=== PATIENT | male | born 1940 | race Caucasian/White ===

== ENCOUNTER 2019-07-26 18:53 | Inpatient (IN) ==
[2019-07-26] MEDS ORDERED: Heparin IV Low Dose *NO* Bolus IV ONE (19:17)
[2019-07-26] MEDS ORDERED: HEPARIN SODIUM/DEXTROSE 25,000 UNITS/500 ML BAG IV SCH (19:30)
[2019-07-26 19:47] LABS: Hematocrit (blood only) 33.2 % (42-52); Hemoglobin 10.6 g/dL (14.0-18.0); Mean Corpuscular Hemoglobin 26.7 pg (25-34); Mean Corpuscular Hgb Conc 31.9 g/dL (32-36); Mean Corpuscular Volume 83.6 fL (80-100); Platelet Count 268 K/uL (130-400); RDW Coefficient of Variation 16.3 % (11.5-14.5); RDW Standard Deviation 49.6 fL (36.4-46.3); Red Blood Count 3.97 M/uL (4.7-6.1); White Blood Count 25.69 K/uL (4.8-10.8)
--- NOTE | 2019-07-26 19:49 | XRay Report ---
XR chest 1V portable CLINICAL HISTORY: weakness COMPARISON STUDY: No previous studies for comparison. FINDINGS: Soft tissue mass overlying the left axilla and left upper chest. Destructive changes involv ing the left third and fourth ribs. Estimated maximum dimension is 9 x 6 cm. Consolidative density left lung base. Right lung is clear. Heart is mildly enlarged. IMPRESSION: 1. Large destructive mass involving the left axilla and left upper chest. 2. Destructive characteristics involving several left upper ribs. 3. Increased nonspecific density left lung base. ACT 112: Negative or not required by law. The above report was generated using voice recognition software. It may contain grammatical, syntax or spelling errors. Electronically signed by: Cruz Carter M.D. 07/26/2019 7:48 PM
[2019-07-26 19:56] LABS: INR 1.4 (0.9-1.1)
[2019-07-26 20:03] LABS: Alanine Aminotransferase 46 U/L (12-78); Albumin Level 2.4 gm/dl (3.4-5.0); Aspartate Aminotransferase 30 U/L (15-37); BUN Creatinine Ratio 32.6 (10-20); Blood Urea Nitrogen 93 mg/dl (7-18); Calcium 8.9 mg/dl (8.5-10.1); Carbon Dioxide 18 mmol/L (21-32); Chloride 108 mmol/L (98-107); Creatinine Clr Calc Pharmacy 22.3 ml/min; Est GFR (African American) 23.5; Est GFR (Non-African American) 20.3; Glucose 175 mg/dl (70-99); Magnesium 1.8 mg/dl (1.8-2.4); Potassium 4.3 mmol/L (3.5-5.1); Sodium 135 mmol/L (136-145)
[2019-07-26 20:14] LABS: Albumin Globulin Ratio 0.6 (0.9-2); Alkaline Phosphatase 110 U/L (45-117); Bilirubin,Total 0.4 mg/dl (0.2-1); Creatine Kinase 24 U/L (39-308); Globulin 4.3 gm/dl (2.5-4.0); Total Protein 6.7 gm/dl (6.4-8.2); Troponin I < 0.015 ng/ml (0-0.045)
[2019-07-26] MEDS ORDERED: MoRPHine SULFATE 2 MG/ML CARP IV STA (21:05)
--- NOTE | 2019-07-26 21:08 | Emergency Department Note ---
History of Present Illness General Chief Complaint: Cardiac Assessment Stated Complaint: ed transfer Time Seen by Provider: 07/26/19 19:15 Source: patient Mode of arrival: EMS Limitations: no limitations History of Present Illness Provider Complaint: other (Tachycardia/palpitations) Onset (ago): hour(s) greater than 10 Duration: constant Onset: during rest Pain Location: substernal Pain Radiation: none Maximum Pain Intensity: 10 Relieved By: + nothing Exacerbated By: + nothing Context: no recent illness, no recent travel and no history of DVT/PE Associated symptoms: + palpitations; no nausea and no vomiting This is a 78-year-old male who was evaluated at the [place] emergency department and sent here for admission. The patient was sent here because of acute kidney injury as well as A. fib/flutter with RVR. The patient states that he went to the hospital in [place] for a sensation of his heart racing. He was found to have A. fib/flutter with RVR and a heart rate in the 150s. The patient was given some medication including heparin and sent here for evaluation as he had acute kidney injury in addition to his new onset A. fib/flutter. The patient also was noted to have a erosive mass in his left upper chest. The patient was accepted by Dr. Hernandez but recommended the patient come here first to make sure he is stable. Home Medications Home Medications Medication Instructions Recorded Confirmed Type albuterol sulfate [Ventolin HFA] 2 puff INHALATION UD PRN 07/26/19 07/26/19 History amlodipine 5 mg PO DAILY 07/26/19 07/26/19 History ezetimibe 10 mg PO DAILY 07/26/19 07/26/19 History glimepiride 2 mg PO DAILY 07/26/19 07/26/19 History hydrocodone-acetaminophen [[place]] 1 tab PO UD PRN 07/26/19 07/26/19 History losartan 50 mg PO DAILY 07/26/19 07/26/19 History metoprolol tartrate 25 mg PO TID 07/26/19 07/26/19 History naproxen sodium [Aleve] 440 mg PO BID PRN 07/26/19 07/26/19 History pravastatin 20 mg PO DAILY 07/26/19 07/26/19 History prednisone 2.5 mg PO DAILY 07/26/19 07/26/19 History umeclidinium-vilanterol [Anoro 1 ea INHALATION UD 07/26/19 07/26/19 History Ellipta] Allergies Allergy/AdvReac Type Severity Reaction Status Date / Time No Known Allergies Allergy Unverified 07/26/19 22:01 Past Med/Surg History Social History Feels Safe at Home: Yes Smoking Status: Former smoker Review of Systems A total of 10 systems reviewed and were otherwise negative Physical Exam Vital Signs Vital Signs - 24 hr 07/26/19 19:09 07/26/19 19:13 07/26/19 19:16 Temperature Temperature Source Pulse Rate 108 H 153 H Pulse Rate from SpO2 Sensor 102 H 151 H Respiratory Rate 26 H 33 H Respiratory Effort / Characteristics Respiratory Depth Respiratory Pattern Blood Pressure 117/53 L Blood Pressure Mean 66 Pulse Oximetry 90 100 Oxygen Delivery Method Room Air Oxygen Flow Rate Sepsis Recent Fever Within 48 Hours Sepsis Action Taken by Nursing 07/26/19 19:20 07/26/19 19:24 07/26/19 19:30 Temperature 36.4 C L Temperature Source Oral Pulse Rate 114 H 115 H 119 H Pulse Rate from SpO2 Sensor 112 H 90 Respiratory Rate 26 H 35 H 32 H Respiratory Effort / Characteristics Labored Respiratory Depth Shallow Respiratory Pattern Tachypnea Blood Pressure 117/53 L Blood Pressure Mean 74 Pulse Oximetry 100 100 99 Oxygen Delivery Method Nasal Cannula Oxygen Flow Rate 4 Sepsis Recent Fever Within 48 Hours No Sepsis Action Taken by Nursing No Action Required 07/26/19 19:40 07/26/19 19:50 07/26/19 20:00 Temperature Temperature Source Pulse Rate 143 H 104 H 102 H Pulse Rate from SpO2 Sensor 106 H 102 H Respiratory Rate 23 40 H 40 H Respiratory Effort / Characteristics Respiratory Depth Respiratory Pattern Blood Pressure Blood Pressure Mean Pulse Oximetry 100 100 Oxygen Delivery Method Oxygen Flow Rate Sepsis Recent Fever Within 48 Hours Sepsis Action Taken by Nursing 07/26/19 20:10 07/26/19 20:20 07/26/19 20:30 Temperature Temperature Source Pulse Rate 102 H 112 H 110 H Pulse Rate from SpO2 Sensor 104 H 108 H Respiratory Rate 28 H 31 H 47 H Respiratory Effort / Characteristics Respiratory Depth Respiratory Pattern Blood Pressure Blood Pressure Mean Pulse Oximetry 98 98 Oxygen Delivery Method Oxygen Flow Rate Sepsis Recent Fever Within 48 Hours Sepsis Action Taken by Nursing 07/26/19 20:33 07/26/19 20:35 07/26/19 20:36 Temperature Temperature Source Pulse Rate 113 H 109 H 113 H Pulse Rate from SpO2 Sensor 111 H 107 H 105 H Respiratory Rate 37 H 41 H 46 H Respiratory Effort / Characteristics Respiratory Depth Respiratory Pattern Blood Pressure 100/67 Blood Pressure Mean 72 Pulse Oximetry 98 98 95 Oxygen Delivery Method Oxygen Flow Rate Sepsis Recent Fever Within 48 Hours Sepsis Action Taken by Nursing 07/26/19 20:40 07/26/19 20:50 07/26/19 21:00 Temperature Temperature Source Pulse Rate 109 H 103 H 155 H Pulse Rate from SpO2 Sensor 103 H 104 H Respiratory Rate 42 H 48 H 54 H Respiratory Effort / Characteristics Respiratory Depth Respiratory Pattern Blood Pressure Blood Pressure Mean Pulse Oximetry 98 98 Oxygen Delivery Method Oxygen Flow Rate Sepsis Recent Fever Within 48 Hours Sepsis Action Taken by Nursing 07/26/19 21:10 07/26/19 21:11 07/26/19 21:20 Temperature Temperature Source Pulse Rate 104 H 99 H 105 H Pulse Rate from SpO2 Sensor 107 H 113 H 105 H Respiratory Rate 26 H 42 H 33 H Respiratory Effort / Characteristics Respiratory Depth Respiratory Pattern Blood Pressure 92/59 L Blood Pressure Mean 69 Pulse Oximetry 96 96 96 Oxygen Delivery Method Oxygen Flow Rate Sepsis Recent Fever Within 48 Hours Sepsis Action Taken by Nursing 07/26/19 21:30 07/26/19 21:31 Temperature Temperature Source Pulse Rate 100 H 102 H Pulse Rate from SpO2 Sensor 101 H 105 H Respiratory Rate 33 H 26 H Respiratory Effort / Characteristics Respiratory Depth Respiratory Pattern Blood Pressure 99/59 L Blood Pressure Mean 62 Pulse Oximetry 97 97 Oxygen Delivery Method Oxygen Flow Rate Sepsis Recent Fever Within 48 Hours Sepsis Action Taken by Nursing CONSTITUTIONAL/VITAL SIGNS: Reviewed / noted above. GENERAL: Non-toxic in appearance. INTEGUMENTARY: Warm, dry, and [place]. HEAD: Normocephalic. EYES: without scleral icterus or trauma. ENT/OROPHARYNX: clear and moist. LYMPHADENOPATHY/NECK: Is supple without lymphadenopathy or meningismus. RESPIRATORY: Lungs clear and equal. CARDIOVASCULAR: Irregular and slightly tachycardic. GI/ABDOMEN: Soft and nontender. No organomegaly or pulsatile mass. No rebound or guarding. Normal bowel sounds. EXTREMITIES: Warm and well perfused. BACK: No CVA tenderness. NEUROLOGICAL: Intact without focal deficits. PSYCHIATRIC: normal affect. MUSCULOSKELETAL: Normally developed with good muscle tone. TRIAGE NURSING DOCUMENTATION REVIEWED. Course Administered Medications Heparin Sodium/Dextrose (Heparin Sodium/Dextrose) 25,000 units in 500 mls @ 19 mls/hr IV .Q24H PAULINA; Protocol Stop: 08/25/19 19:29 Last Admin: 07/26/19 20:27 Dose: 950 units/hr, 19 mls/hr Documented by: [id number] Cosigned by: [id number] Discontinued Medications Heparin Sodium/Dextrose () 1 ea IV ONE ONE; Protocol Stop: 07/26/19 19:18 Last Admin: 07/26/19 20:29 Dose: 1 ea Documented by: [id number] Sodium Chloride (Nss 1000ml) 1,000 mls @ 999 mls/hr IV .Q1H1M ONE Stop: 07/26/19 22:09 Last Admin: 07/26/19 21:23 Dose: 999 mls/hr Documented by: [id number] Morphine Sulfate (Morphine Sulfate) 2 mg IV NOW STA Stop: 07/26/19 21:06 Last Admin: 07/26/19 21:21 Dose: 2 mg Documented by: [id number] Medical Decision Making Differential Diagnosis Differential includes acute coronary syndrome, myocardial infarction, CVA, TIA, anemia, infection, pneumonia, UTI, pyelonephritis, poor nutrition, dehydration, electrolyte disturbance,hypoglycemia. Medical Records Attestation: I reviewed the patient's medical records. Home Medications Current Medication List: was personally reviewed by me Laboratory Data Attestation: I reviewed the patient's lab results. Result diagrams: 07/26/19 19:39 07/26/19 19:39 Labs: Lab Results 07/26/19 07/26/19 07/26/19 Range/Units 19:39 19:39 19:39 WBC 25.69 H (4.8-10.8) K/uL RBC 3.97 L (4.7-6.1) M/uL Hgb 10.6 L (14.0-18.0) g/dL Hct 33.2 L (42-52) % MCV 83.6 (80-100) fL MCH 26.7 (25-34) pg MCHC 31.9 L (32-36) g/dL RDW Std Deviation 49.6 H (36.4-46.3) fL RDW Coeff of Jeremy 16.3 H (11.5-14.5) % Plt Count 268 (130-400) K/uL MPV 10.0 (7.4-10.4) fL Immature Gran % (Auto) 0.6 % Neut % (Auto) 89.9 % Lymph % (Auto) 4.3 % Gall[place] % (Auto) 4.7 % Eos % (Auto) 0.5 % Baso % (Auto) 0.0 % Immature Gran # (Auto) 0.15 H (0.00-0.02) K/uL Neut # (Auto) 23.08 H (1.4-6.5) K/uL Lymph # (Auto) 1.10 L (1.2-3.4) K/uL Gall[place] # (Auto) 1.22 H (0.11-0.59) K/uL Eos # (Auto) 0.13 (0-0.5) K/uL Baso # (Auto) 0.01 (0-0.2) K/uL PT 15.0 H (9.0-12.0) Seconds INR 1.4 H (0.9-1.1) Sodium 135 L (136-145) mmol/L Potassium 4.3 (3.5-5.1) mmol/L Chloride 108 H (98-107) mmol/L Carbon Dioxide 18 L (21-32) mmol/L Anion Gap 9.0 (3-11) BUN 93 H (7-18) mg/dl Creatinine 2.86 H (0.6-1.4) mg/dl Est Cr Clr Drug Dosing 22.3 ml/min Est GFR ( Amer) 23.5 Est GFR (Non-Af Amer) 20.3 BUN/Creatinine Ratio 32.6 H (10-20) Glucose 175 H (70-99) mg/dl Lactate (0.4-2.0) mmol/L Calcium 8.9 (8.5-10.1) mg/dl Magnesium 1.8 (1.8-2.4) mg/dl Total Bilirubin 0.4 (0.2-1) mg/dl AST 30 (15-37) U/L ALT 46 (12-78) U/L Alkaline Phosphatase 110 (45-117) U/L Total Creatine Kinase 24 L (39-308) U/L Troponin I < 0.015 (0-0.045) ng/ml Total Protein 6.7 (6.4-8.2) gm/dl Albumin 2.4 L (3.4-5.0) gm/dl Globulin 4.3 H (2.5-4.0) gm/dl Albumin/Globulin Ratio 0.6 L (0.9-2) TSH 1.370 (0.300-4.500) uIu/ml Urine Color Urine Appearance (Clear) Urine pH (4.5-7.5) Ur Specific Malcolm (1.000-1.030) Urine Protein (Negative) Urine Glucose (UA) (Negative) Urine Ketones (Negative) Urine Blood (Negative) Urine Nitrite (Negative) Urine Bilirubin (Negative) Urine Urobilinogen (Negative) Ur Leukocyte Esterase (Negative) 07/26/19 07/26/19 Range/Units 19:39 21:02 WBC (4.8-10.8) K/uL RBC (4.7-6.1) M/uL Hgb (14.0-18.0) g/dL Hct (42-52) % MCV (80-100) fL MCH (25-34) pg MCHC (32-36) g/dL RDW Std Deviation (36.4-46.3) fL RDW Coeff of Jeremy (11.5-14.5) % Plt Count (130-400) K/uL MPV (7.4-10.4) fL Immature Gran % (Auto) % Neut % (Auto) % Lymph % (Auto) % Gall[place] % (Auto) % Eos % (Auto) % Baso % (Auto) % Immature Gran # (Auto) (0.00-0.02) K/uL Neut # (Auto) (1.4-6.5) K/uL Lymph # (Auto) (1.2-3.4) K/uL [place] # (Auto) (0.11-0.59) K/uL Eos # (Auto) (0-0.5) K/uL Baso # (Auto) (0-0.2) K/uL PT (9.0-12.0) Seconds INR (0.9-1.1) Sodium (136-145) mmol/L Potassium (3.5-5.1) mmol/L Chloride (98-107) mmol/L Carbon Dioxide (21-32) mmol/L Anion Gap (3-11) BUN (7-18) mg/dl Creatinine (0.6-1.4) mg/dl Est Cr Clr Drug Dosing ml/min Est GFR ( Amer) Est GFR (Non-Af Amer) BUN/Creatinine Ratio (10-20) Glucose (70-99) mg/dl Lactate 2.0 (0.4-2.0) mmol/L Calcium (8.5-10.1) mg/dl Magnesium (1.8-2.4) mg/dl Total Bilirubin (0.2-1) mg/dl AST (15-37) U/L ALT (12-78) U/L Alkaline Phosphatase (45-117) U/L Total Creatine Kinase (39-308) U/L Troponin I (0-0.045) ng/ml Total Protein (6.4-8.2) gm/dl Albumin (3.4-5.0) gm/dl Globulin (2.5-4.0) gm/dl Albumin/Globulin Ratio (0.9-2) TSH (0.300-4.500) uIu/ml Urine Color Yellow Urine Appearance Clear (Clear) Urine pH 5.0 (4.5-7.5) Ur Specific Malcolm 1.019 (1.000-1.030) Urine Protein Negative (Negative) Urine Glucose (UA) Negative (Negative) Urine Ketones Negative (Negative) Urine Blood Negative (Negative) Urine Nitrite Negative (Negative) Urine Bilirubin Negative (Negative) Urine Urobilinogen Negative (Negative) Ur Leukocyte Esterase Negative (Negative) Imaging Data Chest x-ray: Radiologist's impression: Chest x-ray: IMPRESSION: 1. Large destructive mass involving the left axilla and left upper chest. 2. Destructive characteristics involving several left upper ribs. 3. Increased nonspecific density left lung base. ECG Data Attestation: I personally reviewed and interpreted this ECG as follows: Indication: palpitations Rate (beats per minute): 115 Rhythm: atrial flutter Findings: + RBBB; no PVC and no ST elevation Blood Pressure Blood Pressure Findings: Normal blood pressure MDM Narrative This is a 78-year-old male who was evaluated at the [place] emergency department and sent here for admission. The patient was sent here because of acute kidney injury as well as A. fib/flutter with RVR. The patient states that he went to the hospital in [place] for a sensation of his heart racing. He was found to have A. fib/flutter with RVR and a heart rate in the 150s. The patient was given some medication including heparin and sent here for evaluation as he had acute kidney injury in addition to his new onset A. fib/flutter. The patient also was noted to have a erosive mass in his left upper chest. The patient was accepted by Dr. Hernandez but recommended the patient come here first to make sure he is stable. The patient's white blood cell count reveals a leukocytosis. His hemoglobin is stable. BUN is 93 and creatinine is 2.86. Chest x-ray reveals the large destructive lesion in the left upper chest. EKG showed a flutter with a heart rate of 115. This fluctuates between the high 90s and 1 teens. The patient was given some IV morphine and IV fluids. He was also given IV heparin. He will be seen by the hospitalist who accepted him for admission. Impression & Plan Atrial flutter with rapid ventricular response, Acute kidney injury, Acute dehydration Discharge Plan Visit Data Chief Complaint: Cardiac Assessment Stated Complaint: ed transfer ED Provider: Fabio Wu Discharge Problem: Atrial flutter with rapid ventricular response, Acute kidney injury, Acute dehydration Patient Disposition: Admitted As Inpatient Forms Stand Alone Forms: [facility], Virtual Emergency Department, Important Visit Information Prescriptions Prescriptions: No Action losartan 50 mg tablet 50 mg PO DAILY RF: 0 hydrocodone-acetaminophen [[place]] 5-325 mg tablet 1 tab PO UD PRN (Reason: Pain) RF: 0 prednisone 5 mg tablet 2.5 mg PO DAILY RF: 0 amlodipine 5 mg tablet 5 mg PO DAILY RF: 0 glimepiride 2 mg tablet 2 mg PO DAILY RF: 0 pravastatin 20 mg tablet 20 mg PO DAILY RF: 0 albuterol sulfate [Ventolin HFA] 90 mcg/actuation HFA aerosol inhaler 2 puff INHALATION UD PRN (Reason: Shortness Of Breath) RF: 0 ezetimibe 10 mg tablet 10 mg PO DAILY RF: 0 metoprolol tartrate 25 mg tablet 25 mg PO TID RF: 0 Anoro Ellipta 62.5-25 mcg/actuation blister with device 1 ea INHALATION UD RF: 0 naproxen sodium [Aleve] 220 mg Tablet 440 mg PO BID PRN (Reason: Pain) RF: 0 Referrals Referrals: Oscar Killian [Primary Care Provider] -
[2019-07-26] MEDS ORDERED: SODIUM CHLORIDE 0.9% 1000ML 1,000 ML IV ONE (21:09)
[2019-07-26 21:19] LABS: Appearance Urine Clear (Clear); Bilirubin Urine Negative (Negative); Blood Urine Negative (Negative); Color Urine Yellow; Glucose Urine UA Negative (Negative); Ketones Urine Negative (Negative); Leukocyte Esterase Urine Negative (Negative); Nitrite Urine Negative (Negative); Protein Urine Negative (Negative); Specific Gravity Urine 1.019 (1.000-1.030); Urobilinogen Urine Negative (Negative)
[2019-07-26 21:27] LABS: Basophils # (auto) 0.01 K/uL (0-0.2); Eosinophils # (auto) 0.13 K/uL (0-0.5); Eosinophils % (auto) 0.5 %; Immature Granulocytes # (auto) 0.15 K/uL (0.00-0.02); Immature Granulocytes % (auto) 0.6 %; Lymphocytes % (auto) 4.3 %; Monocytes # (auto) 1.22 K/uL (0.11-0.59); Monocytes % (auto) 4.7 %; Neutrophils # (auto) 23.08 K/uL (1.4-6.5); Neutrophils % (auto) 89.9 %
--- NOTE | 2019-07-26 23:30 | History & Physical Report ---
Date of Service July 26, 2019 Assessment & Plan (1) Atrial flutter with rapid ventricular response: Patient is a 78 year old male with PMHx L lung mass, DM2, HTN, Anxiety/Depression, Bullous Pemphigoid, CKD, and COPD who presents as a transfer from [place] [facility] for new onset A Flutter, SOB, and lung mass. 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 -CT Head, Chest, Abdomen/Pelvis w/o con ordered -Pt will likely require CT chest w/ con once renal function improves. -Pulmonology consulted for possible biopsy of lesion, patient will likely require Heme-Onc consult once pathology returns. -Patient notes 40 year 1PPD history of smoking, quit 15 years ago. MEGHNA -Cr 2.86 on arrival, base Cr 1 -Likely pre-renal in nature -Continue hydration NSS 100ml/hr COPD -PFT 09/05/18 noted moderate obstruction and air trapping per chart review -Continue Albuterol PRN -Continue Anoro Ellipta DM2 -Pharmacy glycemic consult HTN/HLD -Continue Zetia -Continue pravastatin Bullous Pemphigoid -Continue Prednisone 2.5mg QD Dispo: Telemetry FEN: NPO, NSS 100ml/hr DVT: Heparin gtt Code: Full (2) Acute kidney injury: (3) Lung mass: (4) COPD (chronic obstructive pulmonary disease): (5) DM2 (diabetes mellitus, type 2): (6) HTN (hypertension): (7) Bullous pemphigoid: History of Present Illness Chief Complaint: Atrial Flutter Primary Care Provider: Oscar Killian Patient is a 78 year old male with PMHx L lung mass, DM2, HTN, Anxiety/Depression, Bullous Pemphigoid, CKD, and COPD who presents as a transfer from [place] ED for new onset A Flutter, SOB, and lung mass. Patient states that he was first diagnosed with a "bone cancer" 3-4 months ago by his PCP Dr. Killian. He notes that since that time, he has yet to see an Oncologist, but does state he has had "some scans" in the past. Patient denies knowing what scans he has had and is unclear if he had the work up completed at [place] or [place]. He also notes that this morning his symptoms began as worsening shortness of breath upon awakening. He noted that he was also having "difficulty waking up" and states that while he did not pass out, he felt as though he were about to several times. His home nurse came for the day and encouraged the patient to go to the ED for evaluation due to her concerns for his worsening SOB. While at [place] ED he was found to be in Afib/Aflutter with RVR and had an MEGHNA on top of his CKD. They also made note on CXR of a pleural-based malignancy at the lateral aspect of the hemithorax which had increased from 6.3cm to 7.7cm since 07/03/2019. Patient was given Cardizem, a fluid bolus, and put on a heparin drip. He was also given morphine for his L shoulder/chest wall pain. He was transferred to [facility] for further treatment and evaluation. Patient currently states that he does not feel SOB (while on 4L NC). He states he cannot feel his heart racing nor does he have any chest pain or dizziness. He does note dyspnea on exertion, nausea, abdominal pain primarily in the LLQ, and L shoulder pain 5/10 intensity. Allergies Allergy/AdvReac Type Severity Reaction Status Date / Time No Known Allergies Allergy Unverified 07/26/19 22:01 Home Medications Home Medications Medication Instructions Recorded Confirmed Type albuterol sulfate [Ventolin HFA] 2 puff INHALATION UD PRN 07/26/19 07/26/19 History amlodipine 5 mg PO DAILY 07/26/19 07/26/19 History ezetimibe 10 mg PO DAILY 07/26/19 07/26/19 History glimepiride 2 mg PO DAILY 07/26/19 07/26/19 History hydrocodone-acetaminophen [[place]] 1 tab PO UD PRN 07/26/19 07/26/19 History losartan 50 mg PO DAILY 07/26/19 07/26/19 History metoprolol tartrate 25 mg PO TID 07/26/19 07/26/19 History naproxen sodium [Aleve] 440 mg PO BID PRN 07/26/19 07/26/19 History pravastatin 20 mg PO DAILY 07/26/19 07/26/19 History prednisone 2.5 mg PO DAILY 07/26/19 07/26/19 History umeclidinium-vilanterol [Anoro 1 ea INHALATION UD 07/26/19 07/26/19 History Ellipta] Past Med/Surg History Medical History Mass of left chest wall Social History Preferred Language: Ukrainian Communication Ability: Impaired 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 Required: No Beliefs That Will Affect Care: None Current Living Situation: Alone Other Information That Helps Us Care for You: No Feels Safe at Home: Yes Safety Concerns: Feels Safe At This Time Smoking Status: Former smoker Do You Dip or Chew Tobacco: No ; Hx Alcohol Use: No Hx Substance Use: No Review of Systems Constitutional: + body aches and + weakness; no fever and no chills Eyes: + worsening vision Ear, Nose, Mouth, Throat: + dry mouth Respiratory: + dyspnea and + dyspnea on exertion; no cough and no hemoptysis Cardiovascular: + dyspnea, + dyspnea at rest and + dyspnea on exertion; no chest pain, no palpitations, no edema and no calf pain Gastrointestinal: + abdominal pain, + bloating and + nausea; no vomiting, no constipation and no diarrhea/loose stools Genitourinary: no dysuria Musculoskeletal: shoulder pain Neurologic: no falls pre-syncope Physical Exam Constitutional: well developed, well nourished, + disheveled and cooperative; no acute distress and not combative Eyes: PERRL, conjunctivae normal, anicteric sclerae ENMT: external ear and nose normal, oropharynx normal Neck: trachea midline, no thyromegaly Respiratory: normal respiratory effort and + cough; no respiratory distress and no stridor Auscultation: + diminished lung sounds (bases b/l ); no rales, no rhonchi and no wheezes Cardiovascular: Rate/Rhythm: + tachycardic; + abnormal rhythm (slightly irregular ) Heart Sounds: no murmur Vessels: no JVD Extremities: no calf tenderness and no edema Gastrointestinal (Abdomen): Inspection/Auscultation: + abdomen distended Percussion/Palpation: + abdomen tender (slight TTP in LLQ ), abdomen soft and + dullness to percussion (in lower quadrants b/l ) Musculoskeletal: Head/Neck/Chest: normocephalic and head atraumatic Skin: Trauma: + evidence of skin trauma (R joseph, 2/2 prior bullous pemphigoid ) Neurologic: PERRL, EOMI, accommodation nl, no face palsy, no dysarthria Psychiatric: Orientation: alert, oriented to person and cooperative; + not oriented to place and + not oriented to time Eye Contact: + fair eye contact Results & Data Results & Data ([facility]) Vital Signs (Past 12 Hours) Vital Signs Temp Pulse Resp BP Pulse Ox 07/26/19 23:00 75 23 114/44 L 97 07/26/19 22:50 76 20 98 07/26/19 22:40 104 H 31 H 07/26/19 22:30 74 23 107/53 L 90 07/26/19 22:20 73 27 H 97 07/26/19 22:10 108 H 22 94 07/26/19 22:00 83 27 H 112/64 97 07/26/19 21:50 96 07/26/19 21:40 99 07/26/19 21:32 97 07/26/19 21:31 102 H 26 H 99/59 L 97 07/26/19 21:30 100 H 33 H 97 07/26/19 21:20 105 H 33 H 96 07/26/19 21:11 99 H 42 H 96 07/26/19 21:10 104 H 26 H 92/59 L 96 07/26/19 21:00 155 H 54 H 07/26/19 20:50 103 H 48 H 98 07/26/19 20:40 109 H 42 H 98 07/26/19 20:36 113 H 46 H 95 07/26/19 20:35 109 H 41 H 100/67 98 07/26/19 20:33 113 H 37 H 98 07/26/19 20:30 110 H 47 H 98 07/26/19 20:20 112 H 31 H 07/26/19 20:10 102 H 28 H 98 07/26/19 20:00 102 H 40 H 100 07/26/19 19:50 104 H 40 H 100 07/26/19 19:40 143 H 23 07/26/19 19:30 119 H 32 H 99 07/26/19 19:24 36.4 C L 115 H 35 H 117/53 L 100 07/26/19 19:20 114 H 26 H 100 07/26/19 19:13 153 H 33 H 100 07/26/19 19:09 108 H 26 H 117/53 L 90 Code Status & VTE Plan VTE Prophylaxis Plan VTE Prophylaxis will be ordered: Yes Supervising Physician Co-Signing Physician Notes Attending addendum: I have physically seen this patient, have supervised the medical residents activities, and agree with the H&P unless as otherwise noted. Assessment and Plan: Atrial flutter with RVR/hypertension- The patient will be admitted to telemetry for serial cardiac enzymes, serial EKG's, cardiac rhythm monitoring and a 2-D echocardiogram with Dopplers. Hold amlodipine. Continue with metoprolol tartrate 25 mg p.o. 3 times daily Continue heparin drip begun in the ED. Lopressor 5 mg IV every 4 hours PRN heart rate greater than 110. Consult cardiology Left upper lobe lung mass/COPD- Increasing in size since 07/03/2019. Order CT chest, abdomen and pelvis. Contrast held due to acute kidney injury. Albuterol as needed. Consult pulmonology Acute kidney injury- Creatinine 2.86 upon arrival with baseline around 1. NSS@100 mils per hour. Follow laboratories every morning. Remainder of orders and notations as noted. PG Care Time/CCT Total # of Minutes Spent Total Time Spent with Patient: Total time spent is greater than 50% in coordination of care (as documented) at patient's floor/unit and/or counseling patient: Coding Level of Care Code 78049 Initial Inpt Care Lvl 3 Diagnoses Atrial flutter with rapid ventricular response I48.92 Acute kidney injury N17.9 Lung mass R91.8 COPD (chronic obstructive pulmonary disease) J44.9 DM2 (diabetes mellitus, type 2) E11.9 HTN (hypertension) I10 Bullous pemphigoid L12.0 Resident Activity Tracking Resident Involvement: Resident Care Provided Care Provided: Adult [facility]
[2019-07-26 23:53] LABS: Partial Thromboplastin Ratio 2.7
[2019-07-27 00:01] LABS: Partial Thromboplastin Time 74.6 Seconds (21.0-31.0)
[2019-07-27] MEDS ORDERED: ALBUTEROL HFA 8 GM INHALER INH PRN (01:18)
[2019-07-27] MEDS ORDERED: PHARMACY GLYCEMIC MGMT CONSULT PRN (01:28)
[2019-07-27] MEDS ORDERED: GLUCOSE 40% GEL 15 GM TUBE PO PRN (01:45)
[2019-07-27] MEDS ORDERED: CARBOHYDRATES FOR HYPOGLYCEMIA PO PRN (01:45)
[2019-07-27] MEDS ORDERED: GLUCAGON FOR INJ 1 MG VIAL SQ PRN (01:45)
[2019-07-27] MEDS ORDERED: DEXTROSE 50% 50 ML SYRINGE IV PRN (01:45)
[2019-07-27] MEDS ORDERED: GLUCOSE 10 TABS/TUBE PO PRN (01:45)
[2019-07-27 01:53] LABS: Basophils # (auto) 0.01 K/uL (0-0.2); Eosinophils # (auto) 0.12 K/uL (0-0.5); Eosinophils % (auto) 0.6 %; Hematocrit (blood only) 31.4 % (42-52); Hemoglobin 9.8 g/dL (14.0-18.0); Immature Granulocytes % (auto) 0.5 %; Lymphocytes # (auto) 0.99 K/uL (1.2-3.4); Lymphocytes % (auto) 4.6 %; Mean Corpuscular Hemoglobin 26.2 pg (25-34); Mean Corpuscular Hgb Conc 31.2 g/dL (32-36); Mean Platelet Volume 10.2 fL (7.4-10.4); Monocytes # (auto) 1.24 K/uL (0.11-0.59); Monocytes % (auto) 5.7 %; Neutrophils # (auto) 19.27 K/uL (1.4-6.5); Neutrophils % (auto) 88.6 %; Platelet Count 224 K/uL (130-400); RDW Coefficient of Variation 16.4 % (11.5-14.5); RDW Standard Deviation 50.2 fL (36.4-46.3); Red Blood Count 3.74 M/uL (4.7-6.1); White Blood Count 21.73 K/uL (4.8-10.8)
[2019-07-27] MEDS: SODIUM CHLORIDE 0.9% 1000ML 1,000 ML IV SCH ×2 (01:58→09:48)
[2019-07-27 02:19] LABS: Albumin Level 2.1 gm/dl (3.4-5.0); BUN Creatinine Ratio 33.8 (10-20); Calcium 8.4 mg/dl (8.5-10.1); Creatinine Clr Calc Pharmacy 24.8 ml/min; Est GFR (African American) 27.8; Potassium 4.5 mmol/L (3.5-5.1)
[2019-07-27 02:22] LABS: Albumin Globulin Ratio 0.5 (0.9-2); Bilirubin,Total 0.3 mg/dl (0.2-1); Globulin 3.9 gm/dl (2.5-4.0)
[2019-07-27] MEDS: INSULIN ASPART 100 UNITS/ML 3 ML PEN SC SCH ×5 (02:34→20:54)
[2019-07-27] MEDS ORDERED: ALBUMIN 25% 50 ML IV ONE (04:15)
[2019-07-27] MEDS ORDERED: MAGNESIUM SULFATE / D5W 1 GM/100 ML BAG IV ONE (04:15)
[2019-07-27 05:03] LABS: Basophils # (auto) 0.01 K/uL (0-0.2); Basophils % (auto) 0.1 %; Eosinophils # (auto) 0.08 K/uL (0-0.5); Eosinophils % (auto) 0.5 %; Hematocrit (blood only) 27.4 % (42-52); Hemoglobin 8.5 g/dL (14.0-18.0); Immature Granulocytes # (auto) 0.09 K/uL (0.00-0.02); Immature Granulocytes % (auto) 0.6 %; Lymphocytes # (auto) 0.73 K/uL (1.2-3.4); Lymphocytes % (auto) 4.7 %; Mean Corpuscular Hemoglobin 26.6 pg (25-34); Mean Corpuscular Volume 85.9 fL (80-100); Mean Platelet Volume 9.6 fL (7.4-10.4); Monocytes # (auto) 0.58 K/uL (0.11-0.59); Monocytes % (auto) 3.7 %; Neutrophils # (auto) 14.17 K/uL (1.4-6.5); Neutrophils % (auto) 90.4 %; Platelet Count 180 K/uL (130-400); RDW Coefficient of Variation 16.4 % (11.5-14.5); RDW Standard Deviation 51.8 fL (36.4-46.3); Red Blood Count 3.19 M/uL (4.7-6.1); White Blood Count 15.66 K/uL (4.8-10.8)
[2019-07-27] MEDS ORDERED: ONDANSETRON INJ 2 MG/ML 2 ML VIAL IV STA (06:10)
[2019-07-27] MEDS ORDERED: ONDANSETRON INJ 2 MG/ML 2 ML VIAL ONE (06:13)
[2019-07-27] MEDS ORDERED: SODIUM CHLORIDE 0.9% 1000ML 500 ML IV ONE (06:15)
[2019-07-27] MEDS ORDERED: METOPROLOL TARTRATE 1 MG/ML VIAL IV STA ×2 (06:15)
[2019-07-27] MEDS ORDERED: METOPROLOL TARTRATE 1 MG/ML VIAL IV ONE (06:16)
[2019-07-27 06:41] LABS: Partial Thromboplastin Ratio 1.7
--- NOTE | 2019-07-27 07:13 | CT Scan Report ---
CT head/brain wo con CLINICAL HISTORY: Altered mental status. Worsening vision. COMPARISON STUDY: No previous studies for comparison. TECHNIQUE: Axial CT of the brain is performed from the vertex to the skull base. IV contrast was not administered for this examination. A dose lowering technique was utilized adhering to the principles of ALARA. CT DOSE: 2730.09 mGy.cm FINDINGS: No intra or extra-axial mass lesions are visualized. There is no CT evidence of acute cortical infarc tion. There is no evidence of midline shift. There is no acute hemorrhage. No calvarial fractures ar e visualized. There are patchy white matter hypodensities likely on a small vessel basis. 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 There is no evidence of pathologic ventricular dilatation. There is no evidence of acute sinusitis IMPRESSION: No acute intracranial findings ACT 112: Negative or not required by law. Electronically signed by: Gonzalo Noriega M.D. 07/27/2019 7:11 AM
[2019-07-27 07:25] LABS: Partial Thromboplastin Time 46.1 Seconds (21.0-31.0)
--- NOTE | 2019-07-27 07:37 | CT Scan Report ---
CT chest wo con CT DOSE: HISTORY: Lung mass L lung mass TECHNIQUE: Multiaxial CT images of the chest were performed without contrast. A dose lowering techni que was utilized adhering to the principles of ALARA. COMPARISON: None. FINDINGS: Destructive left apical chest wall mass. This measures 8 cm maximum and shows destructive c hanges of the left and possibly components of the fourth rib. It extends to the left axilla. Additional 4.5 cm lesion in the left retrohilar position. There is a small left pleural effusion. Sub acute fractures of the left ninth 10th and 11th ribs. Several old healed right-sided rib fractures. IMPRESSION: 1. Destructive left apical chest wall mass with extension to the left axilla left pleural effusion. L eft axillary adenopathy with an additional soft tissue mass posterior to the hilar region measuring 4 .5 cm. 3. Several old right as well as left rib fractures of varying ages. 4. 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 ACT 112: Negative or not required by law. The above report was generated using voice recognition software. It may contain grammatical, syntax or spelling errors. Electronically signed by: Cruz Carter M.D. 07/27/2019 7:35 AM
--- NOTE | 2019-07-27 07:41 | CT Scan Report ---
CT SCAN OF THE ABDOMEN AND PELVIS WITHOUT CONTRAST CLINICAL HISTORY: Adenoid abdominal pain. History of carcinoma. COMPARISON STUDY: No previous studies for comparison. TECHNIQUE: CT scan of the abdomen and pelvis was performed from the lung bases to the proximal femurs . Images are reviewed in the axial, sagittal, and coronal planes. IV contrast was not administered fo r this examination. A dose lowering technique was utilized adhering to the principles of ALARA. CT DOSE: FINDINGS: Lower chest: There is a moderate left pleural effusion. There is a trace right pleural effusion. Ther e are left basilar atelectatic changes. There are coronary artery calcifications. Liver: The unenhanced liver is normal in size, contour, and attenuation. There is no intrahepatic leigh ann iary ductal dilatation. Gallbladder: Surgically absent Spleen: Normal in size and attenuation. Pancreas: Unremarkable. Adrenal glands: Unremarkable. Kidneys: No renal, ureteral, or bladder calculi are visualized. Bowel: There are no transition zones to indicate bowel obstruction. There is colonic diverticulosis. There is no evidence of acute diverticulitis. There are scattered colonic air-fluid levels. There is no evidence of acute appendicitis. Peritoneum: There is no intraperitoneal free air or abdominal ascites. Vasculature: The abdominal aorta is normal in course and caliber. Adenopathy: None. Pelvic viscera: The bladder, and pelvic viscera are unremarkable. Skeletal structures: No destructive osseous lesions are seen. IMPRESSION: 1. Motion degraded study 2. No evidence of bowel obstruction. No evidence of free air 3. No evidence of acute diverticulitis. No evidence of acute appendicitis 4. No renal, ureteral, or bladder calculi identified 5. Moderate left pleural effusion with left lung volume loss and left basilar atelectasis ACT 112: Negative or not required by law. Electronically signed by: Gonzalo Noriega M.D. 07/27/2019 7:39 AM
[2019-07-27] MEDS: predniSONE 2.5 MG TAB PO SCH (08:11)
[2019-07-27] MEDS: PRAVASTATIN SOD 20 MG TAB PO SCH (08:11)
[2019-07-27] MEDS: METOPROLOL TARTRATE 25 MG TAB PO SCH ×2 (08:11→14:10)
[2019-07-27] MEDS: EZETIMIBE 10 MG TABLET PO SCH (08:11)
[2019-07-27 08:25] LABS: Albumin Level 2.3 gm/dl (3.4-5.0); BUN Creatinine Ratio 33.2 (10-20); Calcium 8.5 mg/dl (8.5-10.1); Creatinine Clr Calc Pharmacy 25.3 ml/min; Est GFR (African American) 28.4; Est GFR (Non-African American) 24.5; Magnesium 2.1 mg/dl (1.8-2.4); Potassium 4.7 mmol/L (3.5-5.1)
[2019-07-27 08:28] LABS: Albumin Globulin Ratio 0.6 (0.9-2); Bilirubin,Total 0.5 mg/dl (0.2-1); Globulin 3.9 gm/dl (2.5-4.0); Phosphorus 3.6 mg/dl (2.5-4.9); Total Protein 6.2 gm/dl (6.4-8.2)
[2019-07-27] MEDS ORDERED: PERFLUTREN LIPID MICROSPHERE (DEFINITY) IV ONE (08:42)
--- NOTE | 2019-07-27 09:59 | Pharmacy Report ---
Glycemic Control Consultation - Date of Service July 27, 2019 - Scope Scope: Glycemic Pharmacist consulted for glycemic control and to write orders per [facility] inpatient glycemic control protocol. - Objective Weight: 77.5 kg Accuchecks BSG (last 24hrs): 07/26/19 07/27/19 07/27/19 19:39 01:35 01:58 Glucose 175 H 167 H POC Glucose 147 H 07/27/19 07/27/19 07/27/19 04:41 05:52 05:56 Glucose Cancelled Cancelled POC Glucose 190 H 07/27/19 07/27/19 07:29 07:53 Glucose 176 H POC Glucose 185 H Laboratory Data (last 24hrs): 07/26/19 07/27/19 07/27/19 19:39 01:35 04:41 Potassium 4.3 4.5 Cancelled Carbon Dioxide 18 L 16 L Cancelled Anion Gap 9.0 10.0 Cancelled Creatinine 2.86 H 2.49 H D Cancelled Est Cr Clr Drug Dosing 22.3 24.8 Cancelled Beta-Hydroxybutyric Acd 07/27/19 07/27/19 05:56 07:53 Potassium Cancelled 4.7 Carbon Dioxide Cancelled 19 L Anion Gap Cancelled 8.0 Creatinine Cancelled 2.45 H Est Cr Clr Drug Dosing Cancelled 25.3 Beta-Hydroxybutyric Acd Cancelled - Recent Pertinent Medications Outpatient Anti-diabetic Regimen: * Amaryl 2 mg PO daily Risk Factors for Insulin Resistance: * Steroids: prednisone 2.5 mg PO qAM * IVF: heparin drip * Recent Surgery: possible MARILYN and cardioversion * Diet: NPO - Assessment & Plan Assessment & Plan: ASSESSMENT: * Mr Castillo is a gentleman transferred from an outside facility secondary to Afib with RVR (given IV diltiazem) and a large lung mass. Patient currently NPO as may have MARILYN and cardioversion. POC BSGs have been below 200 mg/dL but there was difficulty with blood draws from the lab showing BSGs of 300 then 700 mg/dL. Due to uncertainty of true BSG erred on the side of caution with POCs. * Uncertain if patient's current creatinine is his baseline or represents an MEGHNA. On prednisone 2.5 mg PO qAM at home. Unknown HbA1C. * Weight-based stress of 2 Novolog currently ordered by nightshift pharmacist. Plan for Lantus 15 either at lunch or bedtime if BSG > 180 mg/dL. PLAN FOR INPATIENT GLYCEMIC CONTROL: * Holding outpatient oral diabetes medications * Basal insulin * Lantus 15 units SQ when BSG > 180 mg/dL * Bolus insulin * NovoLog per scale ACHS or Q6hrs while NPO * Goal Range: Low 110 mg/dL - High 140 mg/dL * Correction Factor: 30 mg/dL/unit * Nutritional / Prandial insulin per carb ratio of 1 unit per 10 grams CHO consumed * Please note that the plan above was derived based on current level of insulin resistance and hospital stress. These recommendations are appropriate for inpatient admission only. Plan of care upon discharge will need to be reassessed to avoid potential outpatient hypo/hyperglycemia. Thank you.
--- NOTE | 2019-07-27 10:30 | Family Medicine Progress Note ---
Date of Service July 27, 2019 Assessment & Plan (1) Atrial flutter with rapid ventricular response: 78 yo M PMHx recently diagnosed L lung mass, DM2, HTN, Anxiety/Depression, Bullous Pemphigoid, CKD with baseline ~1.8, COPD admitted for Aflutter with RVR, MEGHNA, and uncontrolled pain 2/2 lung mass. ED Course: 1L NSS, Heparin drip continuation, Morphine 2mg New Onset Atrial Flutter: - Patient was given a total of Cardizem 35mg IV, Cardizem 60mg PO, 1L NSS, and a Heparin drip started at [facility]. - EKG showed A Flutter with RVR - Have discontinued Heparin gtt; will start AC once determined if lung biopsy needed Monday. - Echo performed this AM: - Patient currently with AFib/Flutter, but in HR 80s-90s. - Continue home metoprolol 25mg TID as rate control. Metabolic Acidosis, likely 2/2 MEGHNA: - This morning with some tiredness and pain vs. encephalopathy. Pain improved significantly following IV morphine dosing. - ABG with pH 7.39, pCO2 29 (low) suggestive of hyperventilation 2/2 pain. - Cr 2.86 on arrival, base Cr 1.8 per lab at [facility]. - Likely pre-renal in nature, patient appeared dehydrated and has improved to Cr 2.45 with NSS fluid bolus and continued maintenance fluids. - Continue hydration NSS @ 100ml/hr. 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 - CXR here revealed a large destructive mass involving the L axilla and L upper chest and several ribs. - CT Head, Chest, Abdomen/Pelvis w/o con ordered: - CTAP without signs of metastasis. - CT chest shows lung mass of about 8cm in size at largest diameter with extension into the axilla, as well as lymphadenopathy to 4.5 cm. - Patient reports having had a lung biopsy several weeks ago at [facility]; will attempt to get records. - Patient notes 40 year 1PPD history of smoking, quit 15 years ago. - Continue morphine 4mg IV q4h PRN moderate pain. Can titrate up as needed/tolerated for pain control while also optimizing respiratory drive. - Will consult oncology following receiving results of biopsy pathology. COPD: - PFT 09/05/18 noted moderate obstruction and air trapping per chart review. - Continue Albuterol PRN. - Continue Anoro Ellipta. - Titrate oxygen as needed; patient normally not on oxygen at home. DM2: - Lantus 15 units SQ when BSG > 180 mg/dL. - NovoLog per scale ACHS or Q6hrs while NPO Goal Range: Low 110 mg/dL - High 140 mg/dL Correction Factor: 30 mg/dL/unit Nutritional / Prandial insulin per carb ratio of 1 unit per 10 grams CHO consumed HTN/HLD - Continue Zetia. - Continue pravastatin. Bullous Pemphigoid - Continue Prednisone 2.5mg daily. Dispo: Telemetry FEN: Heart Healthy, NSS 100ml/hr DVT: holding at this time; SCDs Code: Full (2) Acute kidney injury: (3) Lung mass: (4) COPD (chronic obstructive pulmonary disease): (5) DM2 (diabetes mellitus, type 2): (6) HTN (hypertension): (7) Bullous pemphigoid: (8) Metabolic acidosis: Admission and Anticipated Discharge Date Admission Date: July 26, 2019 Supervising Physician Co-Signing Physician Notes I personally examined the patient and verified all griggs points of history and exam, discussed case, and agree with decision making with Dr Trotter. feeling better than when he came in. no sob. no significant pain. somewhat difficult historian - but when i see him with dr trotter she notes he's much more alert and conversive than when she saw him earlier today. vitals noted nad heent nc at mmm lungs fairly quiet throughout but other than occassional/intermittent rhonchorus sound on L no adventitious sounds. cardio distant. no focal neuro deficits. no pallor or icterus afib/flutter - RVR now rate controlled. will start anticoag w DOAC once it's clear whether or not we need to get biopsy of mass (he believes he had one at [place] but will want to confirm and review report for adequacy first) lung mass - record from [facility], management after clear dx. staging CTs done MEGHNA - seems to be higher creatinine than baseline readings that we can find. IVF metabolic acidosis - probably from MEGHNA - fluids, follow otherwise as above Subjective With some lability of heart rate overnight, highest was 160s. Since start of my shift this AM has been irregular rhythm but in the 80-90s. On first interview this morning patient was uncomfortable from pain and appeared very tired, but was responsive to questions. On second interview with Dr. Mcgrath present patient was sitting up in bed, eating lunch, feeling much more comfortable after administration of 4mg IV morphine. Review of Systems Constitutional: no fever, no chills and no malaise Respiratory: no cough and no dyspnea Cardiovascular: no chest pain, no palpitations and no edema Gastrointestinal: no abdominal pain, no constipation and no diarrhea/loose stools Musculoskeletal: chest wall and back pain, alleviated with morphine Physical Exam Constitutional: WD/WN, vitals as above Respiratory: normal respiratory effort, lungs clear to auscultation Cardiovascular: Rate/Rhythm: + irregularly irregular Heart Sounds: normal S1 and normal S2 Gastrointestinal (Abdomen): normal bowel sounds, soft, nontender, no hepatosplenomegaly Skin: no rashes, warm and dry several areas of ecchymosis of bilateral arms at former IV sites Psychiatric: A+Ox3, euthymic affect Results & Data ([facility]) Vital Signs (Past 12 Hours) Vital Signs Temp Pulse Pulse Resp BP BP Pulse Ox 07/27/19 08:07 37 C 93 H 20 112/59 L 95 07/27/19 06:26 136 H 114/65 07/27/19 04:07 36.6 C 105 H 22 95/59 L 97 07/27/19 01:18 36.7 C 103 H 44 H 123/73 98 07/27/19 00:30 75 22 128/52 L 97 07/27/19 00:20 75 23 96 07/27/19 00:10 75 24 95 07/27/19 00:00 75 21 114/59 L 95 07/26/19 23:50 76 20 95 07/26/19 23:40 75 16 96 07/26/19 23:30 78 21 113/46 L 97 07/26/19 23:20 74 21 97 07/26/19 23:10 75 19 95 07/26/19 23:00 75 23 114/44 L 97 07/26/19 22:50 76 20 98 07/26/19 22:40 104 H 31 H Resident Activity Tracking Resident Involvement: Resident Care Provided Care Provided: Adult Hospital Medicine (1) COPD (chronic obstructive pulmonary disease) COPD type: unspecified COPD Qualified Code(s): J44.9 - Chronic obstructive pulmonary disease, unspecified
--- NOTE | 2019-07-27 11:10 | Pulmonary Consultation ---
Date of Consultation July 27, 2019 Assessment & Plan (1) Mass of left chest wall: Apparently, per the patient, he had a biopsy in [place]. Recommend obtaining records prior to proceeding with repeat biopsy of chest wall mass. If no tissue available, recommend consulting surgery or radiology with regards to obtaining a biopsy as the left chest wall mass is not very amenable to bronchoscopic evaluation. He does have a moderate sized left pleural effusion, but I am unable to obtain consent from him as I feel he does not have decision making capacity at this present time. I am unable to find a phone number in the EMR or physical chart for a friend or family number. He does indicate his son, Cade, can be contacted but he cannot give an accurate phone number. (2) COPD (chronic obstructive pulmonary disease): COPD type: unspecified COPD Qualified Code(s): J44.9 - Chronic obstructive pulmonary disease, unspecified History of Present Illness Reason for Consultation: Left chest wall mass Requesting Physician: Gokul Mcgrath DO Attending Physician: Gokul Mcgrath DO History of Present Illness 78-year-old male with a past medical history of diabetes mellitus type 2, hypertension, bullous pemphigoid, CKD and apparent history of COPD (no PFTs available for review) who presented to the hospital as a transfer from [place] due to shortness of breath, atrial flutter and chest wall mass on the left. Patient history is limited as the patient is drowsy this morning and often mumbling his words. He denies any chest pain currently, but noted some chest pain yesterday. He notes increasing shortness of breath over the last several days. He underwent a CT of his chest yesterday that demonstrated a large left-sided chest wall mass with a possible small pleural effusion. Patient describes that he underwent a biopsy in [place] several weeks ago, but does not recall the details of the biopsy and states that he has not seen an oncologist. Patient notes that he quit smoking 40 years ago. There is a possible diagnosis of "bone cancer" based on the H&P. It does appear that he is on 2.5 mg of prednisone daily for unclear reasons. Upon admission to the hospital white count was elevated 25,000. He had a non- anion gap acidosis on arrival. Creatinine was elevated 2.45. Glucose of 185. Urine was negative for any signs of infection. He was started on a heparin drip for his atrial fib/flutter. Currently he is off of all drips. Allergies Allergy/AdvReac Type Severity Reaction Status Date / Time No Known Allergies Allergy Unverified 07/26/19 22:01 Home Medications Home Medications Medication Instructions Recorded Confirmed Type albuterol sulfate [Ventolin HFA] 2 puff INHALATION UD PRN 07/26/19 07/26/19 History amlodipine 5 mg PO DAILY 07/26/19 07/26/19 History ezetimibe 10 mg PO DAILY 07/26/19 07/26/19 History glimepiride 2 mg PO DAILY 07/26/19 07/26/19 History hydrocodone-acetaminophen [[place]] 1 tab PO UD PRN 07/26/19 07/26/19 History losartan 50 mg PO DAILY 07/26/19 07/26/19 History metoprolol tartrate 25 mg PO TID 07/26/19 07/26/19 History naproxen sodium [Aleve] 440 mg PO BID PRN 07/26/19 07/26/19 History pravastatin 20 mg PO DAILY 07/26/19 07/26/19 History prednisone 2.5 mg PO DAILY 07/26/19 07/26/19 History umeclidinium-vilanterol [Anoro 1 ea INHALATION UD 07/26/19 07/26/19 History Ellipta] Patient History Medical History Mass of left chest wall Social History Preferred Language: Azeri Communication Ability: Effective Parcel Post Officer Required: No Beliefs That Will Affect Care: None Current Living Situation: Alone Other Information That Helps Us Care for You: No Feels Safe at Home: Yes Safety Concerns: Feels Safe At This Time Smoking Status: Former smoker Do You Dip or Chew Tobacco: No ; Hx Alcohol Use: No Hx Substance Use: No Review of Systems Review of Systems: Review of systems is limited secondary to cognition. Physical Exam Constitutional: Elderly appearing. Large and scraggly muller. Eyes: PERRL, conjunctivae normal, anicteric sclerae ENMT: external ear and nose normal, oropharynx normal Neck: trachea midline, no thyromegaly Respiratory: normal respiratory effort, lungs clear to auscultation Cardiovascular: Rate/Rhythm: regular rate and + irregularly irregular Heart Sounds: normal S1 and normal S2 Gastrointestinal (Abdomen): normal bowel sounds, soft, nontender, no hepato splenomegaly Musculoskeletal: no cyanosis or clubbing, extremities motor strength 5/5 Skin: no rashes, warm and dry Neurologic: PERRL, EOMI, accommodation nl, no face palsy, no dysarthria Psychiatric: A+Ox3, euthymic affect Results & Data Results & Data ([facility]) Vital Signs (Past 12 Hours) Vital Signs Temp Pulse Pulse Resp BP BP Pulse Ox 07/27/19 08:07 98.6 F 93 H 20 112/59 L 95 07/27/19 06:26 136 H 114/65 07/27/19 04:07 97.9 F 105 H 22 95/59 L 97 07/27/19 01:18 98.1 F 103 H 44 H 123/73 98 07/27/19 00:30 75 22 128/52 L 97 07/27/19 00:20 75 23 96 07/27/19 00:10 75 24 95 07/27/19 00:00 75 21 114/59 L 95 07/26/19 23:50 76 20 95 07/26/19 23:40 75 16 96 07/26/19 23:30 78 21 113/46 L 97 07/26/19 23:20 74 21 97 07/26/19 23:10 75 19 95 Personally reviewed labs and imaging. PG Care Time/CCT Total # of Minutes Spent Total Time Spent with Patient: Total time spent is greater than 50% in coordination of care (as documented) at patient's floor/unit and/or counseling patient: Coding Level of Care Code 29699 Initial Inpt Care Lvl 3 Diagnoses Mass of left chest wall R22.2 COPD (chronic obstructive pulmonary disease) J44.9 COPD type: unspecified COPD
[2019-07-27] MEDS ORDERED: MoRPHine SULFATE 4 MG/ML 1 ML CARP\\VIAL IV STA (11:11)
[2019-07-27 11:22] LABS: HCO3 ABG 17 mmol/L (19-24); Oxygen Saturation ABG 97.1 % (90-95); PCO2 ABG 29 mmHg (35-46); PO2 ABG 89 mmHg (80-95); pH ABG 7.39 (7.35-7.45)
[2019-07-27 11:24] LABS: Allen Test Pos (Pos)
[2019-07-27] MEDS: MENTHOL-ZINC OXIDE 360 APPLN/120 GM TUBE EXT SCH ×2 (11:33→21:00)
[2019-07-27] MEDS: UMECLIDINIUM/VILANTEROL 62.5/25MCG 7 PUFFS/INHALER INH SCH (11:34)
[2019-07-27] MEDS: LIDOCAINE 5% 1 PATCH TD PRN (11:35)
--- NOTE | 2019-07-27 12:55 | Cardiology Consultation ---
Date of Consultation July 27, 2019 Assessment & Plan (1) Atrial flutter with rapid ventricular response: He presumably had recent onset of atrial fibrillation although sure that we know that. He does occasionally have rapid heart rates but for the most part his heart rate seems fairly well controlled. I would for rate control strategy at the moment, which I do not think will be too difficult and if he has occasional rapid heart rates I would not be overly concerned about that. I am going to start metoprolol tartrate 50 mg twice a day, this is slightly higher than what he home-based what I see in his records, although not sure he was taking them and he cannot confirm that he is. (2) On continuous oral anticoagulation: Ideally he would be on anticoagulation, he has this chest wall mass which is being evaluated but no think that should interfere. I have not ordered it but I would recommend Eliquis 5 mg twice a day. (3) HTN (hypertension): He has a somewhat labile blood pressure but his blood pressure has not been terribly elevated. At home he is on amlodipine and losartan, here I do not see either of them listed and I would opt for increasing rate control rather than using these 2 medications. History of Present Illness Attending Physician: Gokul Mcgrath, History of Present Illness This is a 78-year-old gentleman who has a history of diabetes, hypertension and COPD and a chest wall mass. His prior evaluation was at [facility]. He presented there on July 26, 2019 with what is evidently new onset of atrial fibrillation with a rapid heart rate, his heart rate there was in the 150s and he presented with feeling the rapid heart rate. Here he has remained in atrial fibrillation atrial flutter, for the most part his rate is relatively well controlled although he was as fast as 160 for short time on telemetry monitoring. I believe his outpatient medications include only metoprolol tartrate 25 mg 3 times daily as a rate controlling drug, although I do not know he is on it for that reason. Here he was given intravenous metoprolol as he is on his outpatient dose of metoprolol but I do not see that he is taking any other medications for rate control. At the time of my evaluation he tells me he feels well, he is not having any of Symptoms of palpitations that brought him into the emergency room. Allergies Allergy/AdvReac Type Severity Reaction Status Date / Time No Known Allergies Allergy Unverified 07/26/19 22:01 Home Medications Home Medications Medication Instructions Recorded Confirmed Type albuterol sulfate [Ventolin HFA] 2 puff INHALATION UD PRN 07/26/19 07/26/19 History amlodipine 5 mg PO DAILY 07/26/19 07/26/19 History ezetimibe 10 mg PO DAILY 07/26/19 07/26/19 History glimepiride 2 mg PO DAILY 07/26/19 07/26/19 History hydrocodone-acetaminophen [[place]] 1 tab PO UD PRN 07/26/19 07/26/19 History losartan 50 mg PO DAILY 07/26/19 07/26/19 History metoprolol tartrate 25 mg PO TID 07/26/19 07/26/19 History naproxen sodium [Aleve] 440 mg PO BID PRN 07/26/19 07/26/19 History pravastatin 20 mg PO DAILY 07/26/19 07/26/19 History prednisone 2.5 mg PO DAILY 07/26/19 07/26/19 History umeclidinium-vilanterol [Anoro 1 ea INHALATION UD 07/26/19 07/26/19 History Ellipta] Patient History Medical History Mass of left chest wall Social History Preferred Language: [place] Communication Ability: Effective Meter Calibrator Required: No Beliefs That Will Affect Care: None Current Living Situation: Alone Other Information That Helps Us Care for You: No Feels Safe at Home: Yes Safety Concerns: Feels Safe At This Time Smoking Status: Former smoker Do You Dip or Chew Tobacco: No ; Hx Alcohol Use: No Hx Substance Use: No Physical Exam Physical Exam: Constitutional: Alert, cooperative and in no distress. He seems a bit confused. HEENT: Unremarkable Neck: No jugular venous distention, carotid pulses are irregular but otherwise normal and equal bilaterally without bruits. Pulmonary: Clear to auscultation bilaterally with decreased breath sounds at bases. Cardiac: Irregular rhythm with no murmur, gallop or rub. Abdomen: Soft, nontender with normal bowel sounds. Extremities: No edema. Distal pulses intact. Neurologic: No focal findings. Gait is steady. Skin: No rash, ecchymoses or petechiae. Results & Data ([facility]) Vital Signs (Past 12 Hours) Vital Signs Temp Pulse Pulse Resp BP BP Pulse Ox 07/27/19 11:47 37.5 C 123 H 18 112/68 98 07/27/19 08:07 37 C 93 H 20 112/59 L 95 07/27/19 06:26 136 H 114/65 07/27/19 04:07 36.6 C 105 H 22 95/59 L 97 07/27/19 01:18 36.7 C 103 H 44 H 123/73 98 Laboratory Results Cardiac Enzymes 07/26/19 07/27/19 07/27/19 Range/Units 19:39 01:35 04:41 AST 30 27 Cancelled (15-37) U/L Troponin I < 0.015 (0-0.045) ng/ml 07/27/19 07/27/19 Range/Units 05:56 07:53 AST Cancelled 23 (15-37) U/L Troponin I (0-0.045) ng/ml Coagulation 07/26/19 07/26/19 07/27/19 Range/Units 19:39 19:39 04:41 PT 15.0 H (9.0-12.0) Seconds APTT 74.6 H* Cancelled (21.0-31.0) Seconds 07/27/19 Range/Units 06:10 PT (9.0-12.0) Seconds APTT 46.1 H* (21.0-31.0) Seconds CBC 07/26/19 07/27/19 07/27/19 Range/Units 19:39 01:35 04:41 WBC 25.69 H 21.73 H 15.66 H (4.8-10.8) K/uL RBC 3.97 L 3.74 L 3.19 L (4.7-6.1) M/uL Hgb 10.6 L 9.8 L 8.5 L (14.0-18.0) g/dL Hct 33.2 L 31.4 L 27.4 L (42-52) % Plt Count 268 224 180 (130-400) K/uL Neut # (Auto) 23.08 H 19.27 H 14.17 H (1.4-6.5) K/uL Lymph # (Auto) 1.10 L 0.99 L 0.73 L (1.2-3.4) K/uL [place] # (Auto) 1.22 H 1.24 H 0.58 (0.11-0.59) K/uL Eos # (Auto) 0.13 0.12 0.08 (0-0.5) K/uL Baso # (Auto) 0.01 0.01 0.01 (0-0.2) K/uL Comprehensive Metabolic Panel 07/26/19 07/27/19 07/27/19 Range/Units 19:39 01:35 04:41 Sodium 135 L 140 Cancelled (136-145) mmol/L Potassium 4.3 4.5 Cancelled (3.5-5.1) mmol/L Chloride 108 H 114 H Cancelled (98-107) mmol/L Carbon Dioxide 18 L 16 L Cancelled (21-32) mmol/L BUN 93 H 84 H Cancelled (7-18) mg/dl Creatinine 2.86 H 2.49 H D Cancelled (0.6-1.4) mg/dl Glucose 175 H 167 H Cancelled (70-99) mg/dl Calcium 8.9 8.4 L Cancelled (8.5-10.1) mg/dl AST 30 27 Cancelled (15-37) U/L ALT 46 41 Cancelled (12-78) U/L Alkaline Phosphatase 110 98 Cancelled (45-117) U/L Total Protein 6.7 6.0 L Cancelled (6.4-8.2) gm/dl Albumin 2.4 L 2.1 L Cancelled (3.4-5.0) gm/dl 07/27/19 07/27/19 Range/Units 05:56 07:53 Sodium Cancelled 139 (136-145) mmol/L Potassium Cancelled 4.7 (3.5-5.1) mmol/L Chloride Cancelled 112 H (98-107) mmol/L Carbon Dioxide Cancelled 19 L (21-32) mmol/L BUN Cancelled 81 H (7-18) mg/dl Creatinine Cancelled 2.45 H (0.6-1.4) mg/dl Glucose Cancelled 176 H (70-99) mg/dl Calcium Cancelled 8.5 (8.5-10.1) mg/dl AST Cancelled 23 (15-37) U/L ALT Cancelled 39 (12-78) U/L Alkaline Phosphatase Cancelled 96 (45-117) U/L Total Protein Cancelled 6.2 L (6.4-8.2) gm/dl Albumin Cancelled 2.3 L (3.4-5.0) gm/dl Intake and Output 07/26/19 07/27/19 07/27/19 22:59 06:59 14:59 Intake Total 1230.817 / 6447.209 6357.333 / 1383.333 Output Total 225 / 225 Balance 1005.817 / 8691.786 2209.333 / 1383.333 Intake: IV 1230.817 / 1849.634 9599.333 / 1383.333 Albumin 25% 50 ml @ 50 mls/hr 50 / 50 IV ONE ONE Rx#:[id number] HEPARIN SODIUM/DEXTROSE 25,000 180.817 / 180.817 0 / 0 units In 500 ml @ 0 UNITS/HR IV .Q0M [facility] Rx#:[id number] MAGNESIUM SULFATE / D5W 1 gm In 100 / 100 100 ml @ 50 mls/hr IV ONE ONE Rx#:[id number] Nss 1000ML 1,000 ml @ 100 mls/ 1000 / 1000 1283.333 / 1283.333 hr IV .Q10H [facility] Rx#:[id number] Output: Urine 225 / 225 Other: Weight 83.5 kg 77.5 kg Diagnostic Findings Telemetry: Atrial fibrillation, heart rate generally well controlled although for a brief time his heart rate was about 160 bpm. PG Care Time/CCT Total # of Minutes Spent Total Time Spent with Patient: Total time spent is greater than 50% in coordina tion of care (as documented) at patient's floor/unit and/or counseling patient: Coding Level of Care Code 96839 Initial Inpt Care Lvl 3 Diagnoses Atrial flutter with rapid ventricular response I48.92 On continuous oral anticoagulation Z79.01 HTN (hypertension) I10
--- NOTE | 2019-07-27 14:43 | Billing Data ---
Date of Service July 27, 2019 Coding Level of Care Code 76665 Subseq Hosp Care Lvl 3
--- NOTE | 2019-07-27 16:14 | XCELERA ---
[id number]
--- NOTE | 2019-07-27 19:45 | Billing Data ---
Date of Service July 27, 2019 Coding Level of Care Code 09105 Initial Inpt Care Lvl 3
[2019-07-27] MEDS: METOPROLOL TARTRATE 50 MG TAB PO SCH (20:57)
[2019-07-27] MEDS ORDERED: INSULIN GLARGINE SOLOSTAR 100 UNITS/ML 3 ML PEN SC SCH (21:00)
[2019-07-28] MEDS: INSULIN ASPART 100 UNITS/ML 3 ML PEN SC SCH ×6 (00:32→21:58)
[2019-07-28] MEDS ORDERED: ONDANSETRON INJ 2 MG/ML 2 ML VIAL IV ONE (02:20)
--- NOTE | 2019-07-28 07:22 | Electrocardiogram Report ---
Test Reason : Blood Pressure : / mmHG Vent. Rate : 115 BPM Atrial Rate : 312 BPM P-R Int : 000 ms QRS Dur : 124 ms QT Int : 348 ms P-R-T Axes : -82 046 -46 degrees QTc Int : 481 ms Atrial flutter with variable A-V block Right bundle branch block Abnormal ECG No previous ECGs available Confirmed by Jamal Elizabeth ([id number]) on 07/28/2019 7:21:49 AM Referred By: REFERRED SELF Confirmed By:Jamal Elizabeth
--- NOTE | 2019-07-28 07:26 | Electrocardiogram Report ---
Test Reason : Blood Pressure : / mmHG Vent. Rate : 076 BPM Atrial Rate : 304 BPM P-R Int : 000 ms QRS Dur : 126 ms QT Int : 402 ms P-R-T Axes : 258 010 -42 degrees QTc Int : 452 ms Atrial flutter with 4:1 A-V conduction Right bundle branch block Abnormal ECG When compared with ECG of 26-JUL-2019 19:16, (unconfirmed) Vent. rate has decreased BY 39 BPM Confirmed by Jamal Elizabeth ([id number]) on 07/28/2019 7:26:37 AM Referred By: REFERRED SELF Confirmed By:Jamal Elizabeth
[2019-07-28] MEDS: MoRPHine SULFATE 4 MG/ML 1 ML CARP\\VIAL IV PRN ×3 (07:46→20:43)
[2019-07-28] MEDS: UMECLIDINIUM/VILANTEROL 62.5/25MCG 7 PUFFS/INHALER INH SCH (07:47)
[2019-07-28] MEDS: MENTHOL-ZINC OXIDE 360 APPLN/120 GM TUBE EXT SCH ×2 (07:47→20:40)
[2019-07-28] MEDS: predniSONE 2.5 MG TAB PO SCH (07:47)
[2019-07-28] MEDS: EZETIMIBE 10 MG TABLET PO SCH (07:47)
[2019-07-28] MEDS: METOPROLOL TARTRATE 50 MG TAB PO SCH (07:48)
[2019-07-28] MEDS: PRAVASTATIN SOD 20 MG TAB PO SCH (07:48)
[2019-07-28 08:02] LABS: Hematocrit (blood only) 32.7 % (42-52); Hemoglobin 10.2 g/dL (14.0-18.0); Mean Corpuscular Hemoglobin 26.6 pg (25-34); Mean Corpuscular Hgb Conc 31.2 g/dL (32-36); Mean Corpuscular Volume 85.2 fL (80-100); Platelet Count 192 K/uL (130-400); RDW Coefficient of Variation 16.5 % (11.5-14.5); RDW Standard Deviation 50.9 fL (36.4-46.3); Red Blood Count 3.84 M/uL (4.7-6.1); White Blood Count 27.36 K/uL (4.8-10.8)
[2019-07-28 08:06] LABS: BUN Creatinine Ratio 31.6 (10-20); Calcium 8.9 mg/dl (8.5-10.1); Creatinine Clr Calc Pharmacy 31.6 ml/min; Est GFR (African American) 37.1; Potassium 4.9 mmol/L (3.5-5.1)
[2019-07-28 08:15] LABS: Basophils # (auto) 0.01 K/uL (0-0.2); Eosinophils # (auto) 0.08 K/uL (0-0.5); Eosinophils % (auto) 0.3 %; Immature Granulocytes # (auto) 0.13 K/uL (0.00-0.02); Immature Granulocytes % (auto) 0.5 %; Lymphocytes # (auto) 0.74 K/uL (1.2-3.4); Lymphocytes % (auto) 2.7 %; Monocytes # (auto) 1.42 K/uL (0.11-0.59); Monocytes % (auto) 5.2 %; Neutrophils # (auto) 24.98 K/uL (1.4-6.5); Neutrophils % (auto) 91.3 %
[2019-07-28] MEDS: LIDOCAINE 5% 1 PATCH TD PRN (08:26)
[2019-07-28] MEDS ORDERED: HYDROmorphone INJ 0.5 MG/0.5 ML SYR IV STA (08:34)
[2019-07-28] MEDS ORDERED: ACETAMINOPHEN 500 MG TAB PO PRN (08:43)
[2019-07-28] MEDS ORDERED: STAT IV Infusion **Titration per Protocol STA ×2 (08:47→08:55)
[2019-07-28] MEDS ORDERED: dilTIAZem HCl 5 MG/ML 5 ML VIAL IV STA (08:55)
[2019-07-28] MEDS ORDERED: dilTIAZem HCL 125 MG in DEXTROSE 5% 100 ML IV SCH (09:00)
[2019-07-28] MEDS ORDERED: CEFEPIME 1,000 MG in SYRINGE 0 ML IV SCH (09:00)
[2019-07-28] MEDS: CEFEPIME 2,000 MG in SYRINGE 0 ML IV SCH (09:27)
[2019-07-28] MEDS: dilTIAZem HCL 125 MG in DEXTROSE 5% 100 ML IV SCH (09:27)
--- NOTE | 2019-07-28 09:39 | Pharmacy Report ---
Glycemic Control Progress Note - Date of Service July 28, 2019 - Scope Glycemic Pharmacist consulted for glycemic control to write orders per [facility] inpatient glycemic control protocol. - Objective Accuchecks BSG(last 24 hours):: 07/27/19 07/27/19 07/27/19 11:38 16:36 20:46 Glucose POC Glucose 164 H 118 H 67 L* 07/27/19 07/27/19 07/28/19 20:47 21:04 00:26 Glucose POC Glucose 71 74 160 H 07/28/19 07/28/19 07/28/19 03:53 07:03 07:10 Glucose 136 H POC Glucose 120 H 144 H - Recent Pertinent Medications The patient is currently receiving: * Basal insulin: Lantus 0 units every 24 hours * Correctional Insulin: Novolog Correction per scale ACHS Goal Range: Low 110 mg/dL - High 140 mg/dL Correction Factor: 30 mg/dL/unit * Prandial insulin: Per carb ratio of 1 unit per 10 grams CHO consumed - Outpatient Anti-Diabetic Meds Amaryl 2 mg PO daily - Assessment & Plan ASSESSMENT: * See progress note from 07/27/2019 for more background info, in short: * Pt receiving SQ basal bolus insulin regimen for hyperglycemia secondary to baseline DM (outpatient regimen on hold). Patient was febrile last night so cefepime was started. * Patient is currently receiving an average of 12 units of insulin per day * 0 units of basal insulin * 12 units of prandial/correctional insulin * BSGs ranging 67 - 185 mg/dl over the past 24hrs * Changes needed to insulin regimen: * AM Fasting BSG = 144 mg/dl. This is in goal range for patient based on inpatient targets and co-morbidities. Basal insulin will be held at this time. * Post-prandial BSGs trended downwards yesterday. Patient had hypoglycemia (BSG of 67) yesterday evening. This is most likely to double carbohydrate coverage from Amaryl (prolonged half-life due to MEGHNA). Remove carbohydrate coverage for now and re-institute once BSGs > 180 mg/dL. * Total daily dose = < 20 units. * Additional notes / comments: hold Amaryl due to MEGHNA. Ordered HbA1C for tomorrow PLAN FOR INPATIENT GLYCEMIC CONTROL: * HOLD Lantus * Continuing correction factor of 30 mg/dl/unit * REMOVING carb ratio * Continuing goal range of Low 110 mg/dL - High 140 mg/dL * Please note that the plan above was derived based on current level of insulin resistance and hospital stress. These recommendations are appropriate for inpatient admission only. Plan of care upon discharge will need to be reassessed to avoid potential outpatient hypo/hyperglycemia. Thank you.
[2019-07-28] MEDS: PATIENT'S ALLERGY INFO NEEDS ENTERED SCH ×2 (10:00→10:02)
[2019-07-28 10:07] LABS: Appearance Urine Clear (Clear); Bacteria Urine Automated Negative (Negative); Bilirubin Urine Negative (Negative); Blood Urine 1+ (Negative); Color Urine Yellow; Glucose Urine UA Negative (Negative); Ketones Urine Negative (Negative); Leukocyte Esterase Urine Negative (Negative); Nitrite Urine Negative (Negative); Protein Urine Negative (Negative); Specific Gravity Urine 1.018 (1.000-1.030); Urobilinogen Urine Negative (Negative)
--- NOTE | 2019-07-28 10:14 | Family Medicine Progress Note ---
Date of Service July 28, 2019 Assessment & Plan (1) Atrial flutter with rapid ventricular response: 78 yo M PMHx recently diagnosed L lung mass, DM2, HTN, Anxiety/Depression, Bullous Pemphigoid, CKD with baseline ~1.8, COPD admitted for Aflutter with RVR, MEGHNA, and uncontrolled pain 2/2 lung mass. ED Course: 1L NSS, Heparin drip continuation, Morphine 2mg Fever and Luekocytosis likely 2/2 Pneumonia: - This morning patient with fever, tachycardia (possibly convoluted due to new AFib/Flutter), tachypnea (since admission due to pain but worsened). - Luekocytosis increased this morning; on arrival 25 -> 15 yesterday -> 27 today. - UA without signs of infection; UCx collected. No urinary symptoms. - CXR performed showing minimally progressive interstitial prominence at right lung base. - BCx x2 performed; MRSA nares swab negative, cefepime initiated for likely lung as primary source of infection given destructive mass and new CXR findings. - Repeat CBC tomorrow AM. New Onset Atrial Flutter: - Patient was given a total of Cardizem 35mg IV, Cardizem 60mg PO, 1L NSS, and a Heparin drip started at [place] [facility]. - EKG showed A Flutter with RVR. - Holding AC at this time as unclear if patient will need lung biopsy. - Echo showed normal LVEF, no valvular abnormalities. - Patient with AFib with HR 150s this morning, Diltiazem 5mg bolus and Dilt gtt started. - Cardiology today added digoxin, will continue to monitor and expect return to oral rate control medications tomorrow. Metabolic Acidosis, likely 2/2 MEGHNA: - This morning with some tiredness and pain vs. encephalopathy. Pain improved significantly following increased IV morphine dosing. - ABG with pH 7.39, pCO2 29 (low) suggestive of hyperventilation 2/2 pain. - Cr 2.86 on arrival, base Cr 1.8 per lab at [facility]. - Likely pre-renal in nature, patient appeared dehydrated and has improved to Cr 1.96 with NSS fluid bolus and continued maintenance fluids. - Continue hydration NSS @ 100ml/hr. - Repeat BMP AM. Lung carcinoma, recently diagnosed: - Per report from [place] left pleural-based malignancy had increased in size from approximately 6.3cm to 7.7cm since 07/03/2019. - CXR here revealed a large destructive mass involving the L axilla and L upper chest and several ribs. - CT Head, Chest, Abdomen/Pelvis w/o con ordered: - CTAP without signs of metastasis. - CT chest shows lung mass of about 8cm in size at largest diameter with extension into the axilla, as well as lymphadenopathy to 4.5 cm. - Patient reports having had a lung biopsy several weeks ago at [facility]; will attempt to get records. - Patient notes 40 year 1PPD history of smoking, quit 15 years ago. - Continue morphine 4mg IV q3h PRN moderate pain. Can titrate up as needed/tolerated for pain control while also optimizing respiratory drive. - Will consult oncology following receiving results of biopsy pathology. COPD: - PFT 09/05/18 noted moderate obstruction and air trapping per chart review. - Continue Albuterol PRN. - Continue Anoro Ellipta. - Titrate oxygen as needed; patient normally not on oxygen at home. DM2: - HOLD Lantus. - Continuing correction factor of 30 mg/dl/unit. - REMOVING carb ratio. - Continuing goal range of Low 110 mg/dL - High 140 mg/dL. HTN/HLD - Continue Zetia. - Continue pravastatin. Bullous Pemphigoid - Continue Prednisone 2.5mg daily. Dispo: Telemetry FEN: Heart Healthy, NSS 100ml/hr DVT: holding at this time until certain if needs lung biopsy; SCDs Code: Full (2) Acute kidney injury: (3) Lung mass: (4) COPD (chronic obstructive pulmonary disease): (5) DM2 (diabetes mellitus, type 2): (6) HTN (hypertension): (7) Bullous pemphigoid: (8) Metabolic acidosis: Admission and Anticipated Discharge Date Admission Date: July 26, 2019 Supervising Physician Co-Signing Physician Notes I personally examined the patient and verified all griggs points of history and exam, discussed case, and agree with decision making with Dr Vela. sleeping when i went to see him, appearing comfortable. on revisit, still sleeping comfortably. awakens easily - denies complaints. does seem somewhat confused but on directed questioning does not feel sob. vitals noted nad heent nc at mmm breathing unlabored no accessory muscles good effort. no focal neuro deficits. no pallor or icterus. labs noted. septic picture - most c/w new pneumonia - started cefepime (risk for resistant bugs, but MRSA nares negative) - appears improved this afternoon afib/flutter - RVR again this morning - in the face of septic influence. increased meds - rate now controlled again. will start anticoag w DOAC once it's clear whether or not we need to get biopsy of mass (he believes he had one at [facility] but will want to confirm and review report for adequacy first) lung mass - awaiting record from [facility], management after clear dx. staging CTs done. if no bx report from [facility]/if wasn't done/if was nondiagnostic -- probably radiology vs surgery for biopsy MEGHNA - seems to be higher creatinine than baseline readings that we can find. IVF have been helping - creatinine improving. metabolic acidosis - probably from MEGHNA - fluids, follow (stable today) otherwise as above Subjective With intermittent irregularity of HR overnight, however since 6AM with HR 150s, tachypnea, episode of fever to 38.3C. This morning with moderate pain despite 4mg IV morphine. Does not feel short of breath, no hypoxia, no chest pain, abdominal pain, nausea/vomiting, diarrhea/constipation. No dysuria. Review of Systems Constitutional: + fever; no chills Respiratory: no cough, no dyspnea and no wheezing Cardiovascular: no chest pain, no palpitations and no edema Gastrointestinal: no abdominal pain, no nausea, no vomiting, no constipation and no diarrhea/loose stools Genitourinary: no dysuria, no urinary frequency and no hematuria Physical Exam Constitutional: WD/WN, vitals as above Respiratory: normal respiratory effort, lungs clear to auscultation Cardiovascular: Rate/Rhythm: + irregularly irregular Heart Sounds: normal S1 and normal S2 Gastrointestinal (Abdomen): normal bowel sounds, soft, nontender, no hepatosplenomegaly Skin: no rashes, warm and dry several areas of ecchymosis of bilateral arms at former IV sites Psychiatric: A+Ox3, euthymic affect Results & Data ([facility]) Vital Signs (Past 12 Hours) Vital Signs Temp Pulse Pulse Resp BP BP Pulse Ox 07/28/19 09:57 77 16 105/58 L 105/58 L 95 07/28/19 09:37 36.7 C 150 H 20 117/67 94 07/28/19 08:00 38.3 C H 153 H 18 106/68 95 07/28/19 07:23 130 H 07/28/19 04:24 36.9 C 72 20 122/68 94 07/28/19 00:16 36.7 C 58 L 22 110/72 96 Resident Activity Tracking Resident Involvement: Resident Care Provided Care Provided: Adult Hospital Medicine (1) COPD (chronic obstructive pulmonary disease) COPD type: unspecified COPD Qualified Code(s): J44.9 - Chronic obstructive pulmonary disease, unspecified
--- NOTE | 2019-07-28 10:33 | XRay Report ---
XR chest 1V portable CLINICAL HISTORY: tachypnea, fever dyspnea COMPARISON STUDY: 07/26/2019 FINDINGS: Unchanged left apical mass. Unchanged destructive change left ribs. Subtle interstitial change right base. Small left effusion unchanged. IMPRESSION: 1. Pre-existing mass and left effusion type change. 2. Interstitial prominence right base minimally progressive from the prior study. ACT 112: Negative or not required by law. The above report was generated using voice recognition software. It may contain grammatical, syntax or spelling errors. Electronically signed by: Cruz Carter M.D. 07/28/2019 10:31 AM
--- NOTE | 2019-07-28 11:02 | Pulmonology Progress Note ---
Date of Service July 28, 2019 Assessment & Plan (1) Mass of left chest wall: Apparently, per the patient, he had a biopsy in [place]. Recommend obtaining records prior to proceeding with repeat biopsy of the chest wall mass. He also has a left lower lobe mass that is potentially amenable to biopsy via bronchoscopy if necessary. Additionally, he has a left sided pleural effusion which ideally would be tapped as this may potentially help with staging a malignancy as well. 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 Pulmonary will continue to follow. Thanks for the consult. (2) COPD (chronic obstructive pulmonary disease): COPD type: unspecified COPD Qualified Code(s): J44.9 - Chronic obstructive pulmonary disease, unspecified (3) Mass of lower lobe of left lung: (4) Pleural effusion, left: Admission and Anticipated Discharge Date Admission Date: July 26, 2019 Subjective Patient had some increasing heart rates this morning and underwent a repeat chest x-ray by the primary team. He denies any significant shortness of breath currently. He does have some intermittent chest pain on the left side of his chest. No fevers or chills. Minimal cough. He is still very slow to answer questions and often times becomes easily confused and mumbles his words. Physical Exam Eyes: PERRL, conjunctivae normal, anicteric sclerae ENMT: external ear and nose normal, oropharynx normal Neck: trachea midline, no thyromegaly Respiratory: normal respiratory effort, lungs clear to auscultation Cardiovascular: Rate/Rhythm: regular rate and + irregularly irregular Heart Sounds: normal S1 and normal S2 Gastrointestinal (Abdomen): normal bowel sounds, soft, nontender, no hepatosplenomegaly Musculoskeletal: no cyanosis or clubbing, extremities motor strength 5/5 Skin: no rashes, warm and dry Neurologic: PERRL, EOMI, accommodation nl, no face palsy, no dysarthria Psychiatric: A+Ox3, euthymic affect Orientation: alert Results & Data Results & Data ([facility]) Vital Signs (Past 12 Hours) Vital Signs Temp Pulse Pulse Resp BP BP Pulse Ox 07/28/19 09:57 77 16 105/58 L 105/58 L 95 07/28/19 09:37 98.1 F 150 H 20 117/67 94 07/28/19 08:00 100.9 F H 153 H 18 106/68 95 07/28/19 07:23 130 H 07/28/19 04:24 98.4 F 72 20 122/68 94 07/28/19 00:16 98.1 F 58 L 22 110/72 96 PG Care Time/CCT Total # of Minutes Spent Total Time Spent with Patient: Total time spent is greater than 50% in coordination of care (as documented) at patient's floor/unit and/or counseling patient: Coding Level of Care Code 76467 Subseq Hosp Care Lvl 2 Diagnoses Mass of left chest wall R22.2 COPD (chronic obstructive pulmonary disease) J44.9 COPD type: unspecified COPD Mass of lower lobe of left lung R91.8 Pleural effusion, left J90
--- NOTE | 2019-07-28 11:03 | Cardiology Progress Note ---
Date of Service July 28, 2019 Assessment & Plan (1) Atrial flutter with rapid ventricular response: He presumably had recent onset of atrial fibrillation although I am sure that we know that. He does occasionally have rapid heart rates but for the most part his heart rate seems fairly well controlled. I am not sure why he has such a variation. I would opt for a rate control strategy at the moment, and if he has occasional rapid heart rates I would not be overly concerned about that. I did start metoprolol tartrate 50 mg twice a day yesterday, this is slightly higher than what he home-based what I see in his records, although not sure he was taking them and he cannot confirm that he is. He has not had bradycardia and at times his heart rate remains quite elevated. Additionally his blood pressure is borderline. Not sure why his heart rate went up during the night, it seems that his evening dose of metoprolol was given. I am therefore going to start digoxin at low dose, perhaps that will help with rate control without affecting his blood pressure. (2) On continuous oral anticoagulation: Ideally he would be on anticoagulation, he has this chest wall mass which is being evaluated but no think that should interfere. I have not ordered it but I would recommend Eliquis 5 mg twice a day. (3) HTN (hypertension): He has a somewhat labile blood pressure but his blood pressure has not bee n elevated. At home he is on amlodipine and losartan, here I do not see either of them listed and I would opt for increasing rate control rather than using these 2 medications. Admission and Anticipated Discharge Date Admission Date: July 26, 2019 Subjective He is not a very good historian but he is not complaining of any palpitations or other cardiovascular complaints today. Physical Exam Physical Exam: Constitutional: Alert, cooperative and in no distress. He seems a bit confused. HEENT: Unremarkable Neck: No jugular venous distention, carotid pulses are irregular but otherwise normal and equal bilaterally without bruits. Pulmonary: Clear to auscultation bilaterally with decreased breath sounds at bases. Cardiac: Irregular rhythm with no murmur, gallop or rub. Abdomen: Soft, nontender with normal bowel sounds. Extremities: No edema. Distal pulses intact. Neurologic: No focal findings. Gait is steady. Skin: No rash, ecchymoses or petechiae. Results & Data ([facility]) Vital Signs (Past 12 Hours) Vital Signs Temp Pulse Pulse Resp BP BP Pulse Ox 07/28/19 09:57 77 16 105/58 L 105/58 L 95 07/28/19 09:37 36.7 C 150 H 20 117/67 94 07/28/19 08:00 38.3 C H 153 H 18 106/68 95 07/28/19 07:23 130 H 07/28/19 04:24 36.9 C 72 20 122/68 94 07/28/19 00:16 36.7 C 58 L 22 110/72 96 Laboratory Results CBC 07/28/19 Range/Units 07:03 WBC 27.36 H (4.8-10.8) K/uL RBC 3.84 L (4.7-6.1) M/uL Hgb 10.2 L (14.0-18.0) g/dL Hct 32.7 L (42-52) % Plt Count 192 (130-400) K/uL Neut # (Auto) 24.98 H (1.4-6.5) K/uL Lymph # (Auto) 0.74 L (1.2-3.4) K/uL Dyer # (Auto) 1.42 H (0.11-0.59) K/uL Eos # (Auto) 0.08 (0-0.5) K/uL Baso # (Auto) 0.01 (0-0.2) K/uL Comprehensive Metabolic Panel 07/28/19 Range/Units 07:03 Sodium 142 (136-145) mmol/L Potassium 4.9 (3.5-5.1) mmol/L Chloride 114 H (98-107) mmol/L Carbon Dioxide 19 L (21-32) mmol/L BUN 62 H (7-18) mg/dl Creatinine 1.96 H D (0.6-1.4) mg/dl Glucose 136 H (70-99) mg/dl Calcium 8.9 (8.5-10.1) mg/dl Intake and Output 07/27/19 07/28/19 07/28/19 22:59 06:59 14:59 Intake Total 1340 / 2993.333 150 / 2993.333 Output Total 300 / 975 400 / 975 Balance 1040 / 2017.333 -250 / 2017.333 Intake: IV 1000 / 2383.333 Nss 1000ML 1,000 ml @ 100 mls/ 1000 / 1783.333 hr IV .Q10H PAULINA Rx#:[id number] Oral 340 / 610 150 / 610 Output: Urine 300 / 975 400 / 975 Other: # Unmeasured Voids 1 1 Weight 77.5 kg 79.2 kg Diagnostic Findings Telemetry: He remains in atrial fibrillation or flutter, the rate was elevated during the night, this morning after receiving medications the heart rate is once again better controlled. PG Care Time/CCT Total # of Minutes Spent Total Time Spent with Patient: Total time spent is greater than 50% in coordination of care (as documented) at patient's floor/unit and/or counseling patient: Coding Level of Care Code 83642 Subseq Hosp Care Lvl 2 Diagnoses Atrial flutter with rapid ventricular response I48.92 On continuous oral anticoagulation Z79.01 HTN (hypertension) I10
[2019-07-28] MEDS ORDERED: DIGOXIN 0.25 MG TAB PO ONE (11:13)
[2019-07-28] MEDS ORDERED: DIGOXIN 0.125 MG/2.5 ML UDP PO SCH (16:00)
--- NOTE | 2019-07-28 17:04 | Billing Data ---
Date of Service July 28, 2019 Coding Level of Care Code 99486 Subseq Hosp Care Lvl 3
[2019-07-29] MEDS: MoRPHine SULFATE 4 MG/ML 1 ML CARP\\VIAL IV PRN (01:11)
[2019-07-29] MEDS: dilTIAZem HCL 125 MG in DEXTROSE 5% 100 ML IV SCH (06:04)
[2019-07-29 07:41] LABS: Hemoglobin 8.9 g/dL (14.0-18.0); Mean Corpuscular Hemoglobin 26.6 pg (25-34); Mean Corpuscular Hgb Conc 30.7 g/dL (32-36); Mean Corpuscular Volume 86.6 fL (80-100); Mean Platelet Volume 10.2 fL (7.4-10.4); Platelet Count 190 K/uL (130-400); RDW Coefficient of Variation 16.8 % (11.5-14.5); Red Blood Count 3.35 M/uL (4.7-6.1); White Blood Count 29.47 K/uL (4.8-10.8)
[2019-07-29 08:15] LABS: BUN Creatinine Ratio 28.3 (10-20); Basophils # (auto) 0.01 K/uL (0-0.2); Calcium 9.4 mg/dl (8.5-10.1); Creatinine Clr Calc Pharmacy 32.9 ml/min; Echinocytes 1+; Eosinophils # (auto) 0.23 K/uL (0-0.5); Eosinophils % (auto) 0.8 %; Est GFR (African American) 39.1; Est GFR (Non-African American) 33.7; Immature Granulocytes # (auto) 0.17 K/uL (0.00-0.02); Immature Granulocytes % (auto) 0.6 %; Lymphocytes # (auto) 0.98 K/uL (1.2-3.4); Lymphocytes % (auto) 3.3 %; Monocytes # (auto) 1.75 K/uL (0.11-0.59); Monocytes % (auto) 5.9 %; Neutrophils # (auto) 26.33 K/uL (1.4-6.5); Neutrophils % (auto) 89.4 %; Potassium 5.1 mmol/L (3.5-5.1)
[2019-07-29 08:28] LABS: Estimated Average Glucose 166 mg/dl; Hemoglobin A1C 7.4 % (4.5-5.6)
[2019-07-29] MEDS: UMECLIDINIUM/VILANTEROL 62.5/25MCG 7 PUFFS/INHALER INH SCH (08:44)
[2019-07-29] MEDS: MENTHOL-ZINC OXIDE 360 APPLN/120 GM TUBE EXT SCH ×2 (08:45→21:50)
[2019-07-29] MEDS: EZETIMIBE 10 MG TABLET PO SCH (08:46)
[2019-07-29] MEDS: predniSONE 2.5 MG TAB PO SCH (08:46)
[2019-07-29] MEDS: CEFEPIME 2,000 MG in SYRINGE 0 ML IV SCH (08:48)
[2019-07-29] MEDS: PRAVASTATIN SOD 20 MG TAB PO SCH (08:49)
[2019-07-29] MEDS: INSULIN ASPART 100 UNITS/ML 3 ML PEN SC SCH ×4 (08:49→20:44)
--- NOTE | 2019-07-29 09:26 | Hospitalist Progress Note ---
Date of Service July 29, 2019 Assessment & Plan (1) Atrial flutter with rapid ventricular response: 78 yo M PMHx recently diagnosed L lung mass, DM2, HTN, Anxiety/Depression, Bullous Pemphigoid, CKD with baseline ~1.8, COPD admitted for Aflutter with RVR, MEGHNA, and uncontrolled pain 2/2 lung mass. ED Course: 1L NSS, Heparin drip, Morphine 2mg Fever and Luekocytosis: -Likely secondary to pneumonia possibly post obstructive -Patient with fever yesterday unable to give great review of systems -Concerned for possible covid infection will rule out with test and place patient on airborne isolation pending results - Luekocytosis White count continuing to rise 29.47 today - UA without signs of infection; UCx collected. No urinary symptoms. - CXR performed showing minimally progressive interstitial prominence at right lung base. - BCx x2 performed; MRSA nares swab negative, cefepime initiated for likely lung as primary source of infection given destructive mass and new CXR findings. New Onset Atrial Flutter: -Appears to be new onset atrial flutter -Patient currently rate controlled on dilt drip at 5, metoprolol 50 mg BID PO, and digoxin - Hope to transition off of drip today, awaiting cardiologies recommendations before transitioning to PO only - Echo showed normal LVEF, no valvular abnormalities. - Currently not on anticoagulation, had been on heparin drip. - Was stated holding for possible biopsy but we can likely continue heparin until definitive procedure time is set if even needed at all - ideally would like to discuss pros cons of anticoagulation with a decision maker for the patient. MEGHNA Appears to be pre renal improving with hydration Improving creatinine 1.88 this morning down from 2.86 on admission Lung carcinoma, recently diagnosed: - Per report from [place] left pleural-based malignancy had increased in size from approximately 6.3cm to 7.7cm since 07/03/2019. - CXR here revealed a large destructive mass involving the L axilla and L upper chest and several ribs. - CT Head, Chest, Abdomen/Pelvis w/o con ordered: - CTAP without signs of metastasis. - CT chest shows lung mass of about 8cm in size at largest diameter with extension into the axilla, as well as lymphadenopathy to 4.5 cm. - Patient reports having had a lung biopsy several weeks ago at [facility]; will attempt to get records. - Patient notes 40 year 1PPD history of smoking, quit 15 years ago. - Continue morphine 4mg IV q3h PRN moderate pain. Can titrate up as needed/tolerated for pain control while also optimizing respiratory drive. - Patient will need outpatient oncology follow up - consider palliative care consult. COPD: - PFT 09/05/18 noted moderate obstruction and air trapping per chart review. - Continue Albuterol PRN. - Continue Anoro Ellipta. - Titrate oxygen as needed; patient normally not on oxygen at home; oxygenating well on room air at present DM2: - HOLD Lantus. - Continuing correction factor of 30 mg/dl/unit. - REMOVING carb ratio. - Continuing goal range of Low 110 mg/dL - High 140 mg/dL. HTN/HLD - Continue Zetia. - Continue pravastatin. Bullous Pemphigoid - Continue Prednisone 2.5mg daily. Dispo: Telemetry FEN: Heart Healthy, NSS 100ml/hr DVT: SCDs Code: Full (2) Acute kidney injury: (3) Lung mass: (4) COPD (chronic obstructive pulmonary disease): (5) DM2 (diabetes mellitus, type 2): (6) HTN (hypertension): (7) Bullous pemphigoid: (8) Metabolic acidosis: Admission and Anticipated Discharge Date Admission Date: July 26, 2019 Supervising Physician Co-Signing Physician Notes Resident Physician Supervision Note: I independently interviewed and examined the patient and verified the griggs history and physical, reviewed labs and image studies, discussed the case with the resident Dr. Schmid and agree with the findings and care plan. Subjective Spencer Castillo tells me he is feeling well this morning, denies everything on full review of systems. However, his answers are not always appropriate and he is not oriented to time or situation fully. This does not appear to be a deviation from his baseline. Attempted to discuss anticoagulation risks benefits with patient but he was unable to have a meaningful conversation or express risks benefits back to me. Unsure who decision maker is for patient. Review of Systems Review of Systems: Unobtainable due to cognitive status Physical Exam Physical Exam: Constitutional: WD/WN, vitals as above resting comfortably in bed eating breakfast Respiratory: normal respiratory effort, lungs clear to auscultation Cardiovascular: Regular rate, irregularlyl irregular rhythm normal S1 and normal S2 Gastrointestinal (Abdomen): Abdomen soft/NT no masses, no organomegalyl Skin: no rashes, warm and dry several areas of ecchymosis of bilateral arms at former IV sites Results & Data Results & Data ([facility]) Vital Signs (Past 12 Hours) Vital Signs Temp Pulse Resp BP BP Pulse Ox 07/29/19 07:01 36.6 C 107 H 20 119/80 90 07/29/19 03:08 37.1 C 77 19 125/70 95 07/28/19 23:35 37.0 C 76 16 111/69 93 Resident Activity Tracking Resident Involvement: Resident Care Provided Care Provided: Adult Hospital Medicine (1) COPD (chronic obstructive pulmonary disease) COPD type: unspecified COPD Qualified Code(s): J44.9 - Chronic obstructive pulmonary disease, unspecified
--- NOTE | 2019-07-29 09:42 | Pulmonology Progress Note ---
Date of Service July 29, 2019 Assessment & Plan (1) Mass of lower lobe of left lung: Impression: 78-year-old male with history of tobacco abuse presenting with left lower lobe lung lesion and left chest wall mass. Lesion was biopsied in [place] about 3 weeks ago. The patient states that he was advised by someone in that system that he had cancer, he states he was told he had bone cancer. He is not seen an oncologist. Recommendations: 1. Chest wall mass: I attempted to contact the pathology department in [place] on several occasions this morning. Was not able to speak with anyone and was unable to get any medical results. I would not advocate doing any procedures including bronchoscopy or thoracentesis on this patient till we were able to ascertain what results are already available. If this is a malignancy which certainly appears to be the case, it is advanced. He had a noncontrast CT scan of the head which would not be an adequate staging procedure and would recommend CT with contrast or MRI of the brain to complete staging. He would also require an outpatient PET scan. As the patient is a poor historian, I cannot sense whether or not the studies had been obtained previously. They definitely do not need to be done during an inpatient stay. The patient has not, by his report, established with medical oncology or radiation oncology which certainly would be recommended. Again this is not necessary during his inpatient stay. Palliative care consultation is recommended given the advanced nature of his malignancy. Addressing of CODE STATUS would be griggs. 2. Pleural effusion: Possibly malignant however the patient is likely already staged once we get pathology report from [facility]. Given the fact that he is asymptomatic from a pulmonary standpoint without shortness of breath cough or symptoms referrable to the pleural effusion, I would defer intervention at this point time. Anticoagulation can be initiated from a pulmonary perspective as ag ain I do not anticipate the need for procedures at this point in time. 3. History of COPD: PFTs not available. The patient is not overtly bronchospastic. Would continue Anoro. He is on prednisone for his bullous pemphigoid, not underlying lung disease 4. Possible pneumonia: Review of the patient's CT scan does not demonstrate a clear infiltrative process other than the lung mass. He is currently being treated with cefepime. Cultures are negative. CBC remains elevated with leukocytosis which may be reactive. He had one fever on the . Cultures remain negative to date. Recommend de-escalation of antibiotics. (2) Pleural effusion, left: (3) Mass of left chest wall: Admission and Anticipated Discharge Date Admission Date: July 26, 2019 Review of Systems Review of Systems: Unobtainable due to cognitive status Physical Exam Constitutional: well developed; not ill appearing Neck: trachea midline, no thyromegaly Respiratory: Decreased breath sounds at the left lung base Cardiovascular: RRR, no murmur, no edema Gastrointestinal (Abdomen): normal bowel sounds, soft, nontender, no hepatosplenomegaly Musculoskeletal: Extremities: extremities normal to inspection Skin: no rashes, warm and dry Neurologic: The patient does not appear in distress and moves all 4 extremities but cognitively appears somewhat impaired. He perseverates and is unable to clearly answer questions. Lymphatic: no cervical lymphadenopathy Results & Data Results & Data ([facility]) Vital Signs (Past 12 Hours) Vital Signs Temp Pulse Resp BP BP Pulse Ox 07/29/19 07:01 36.6 C 107 H 20 119/80 90 07/29/19 03:08 37.1 C 77 19 125/70 95 07/28/19 23:35 37.0 C 76 16 111/69 93 Laboratory Results 07/29/19 07:13 07/29/19 07:13 Diagnostic Findings No new imaging studies reviewed. Prior imaging studies were extensively reviewed. PG Care Time/CCT Total # of Minutes Spent Total Time Spent with Patient: Total time spent is greater than 50% in coordination of care (as documented) at patient's floor/unit and/or counseling patient: Coding Level of Care Code 60530 Subseq Hosp Care Lvl 3 Diagnoses Mass of lower lobe of left lung R91.8 Pleural effusion, left J90 Mass of left chest wall R22.2 Time Spent (min) 35
--- NOTE | 2019-07-29 11:59 | Communication Note ---
Date of Service: July 29, 2019 Spoke with patient's , who is medical decision maker for patient. She tells me he initially presented to hospital for shortness of breath and confusion, she tells me he certainly did have a biopsy 2 weeks agowhich showed "lung cancer" this was performed at [facility]. I have requested a release of records from that hospital in regards to the pathology results. believes he would wish to remain a full code. Discussed risks/benefits of anticoagulation and she is requesting to anticoagulate at this time.
[2019-07-29] MEDS: DIGOXIN 0.125 MG TAB PO SCH (17:18)
[2019-07-29] MEDS: ONDANSETRON 4 MG OD TAB PO PRN (20:03)
[2019-07-29] MEDS: METOPROLOL TARTRATE 50 MG TAB PO SCH (20:11)
[2019-07-29] MEDS ORDERED: CEFEPIME 2,000 MG in SYRINGE 0 ML IV SCH (21:00)
[2019-07-30] MEDS: MoRPHine SULFATE 4 MG/ML 1 ML CARP\\VIAL IV PRN ×2 (01:59→10:37)
[2019-07-30 06:52] LABS: Hematocrit (blood only) 32.5 % (42-52); Mean Corpuscular Hemoglobin 26.2 pg (25-34); Mean Corpuscular Hgb Conc 30.8 g/dL (32-36); Mean Corpuscular Volume 85.3 fL (80-100); Mean Platelet Volume 10.1 fL (7.4-10.4); Platelet Count 186 K/uL (130-400); RDW Coefficient of Variation 16.8 % (11.5-14.5); RDW Standard Deviation 52.2 fL (36.4-46.3); Red Blood Count 3.81 M/uL (4.7-6.1); White Blood Count 22.58 K/uL (4.8-10.8)
[2019-07-30 07:25] LABS: BUN Creatinine Ratio 28.8 (10-20); Calcium 9.7 mg/dl (8.5-10.1); Creatinine Clr Calc Pharmacy 36.4 ml/min; Est GFR (African American) 44.1; Est GFR (Non-African American) 38.1; Magnesium 1.8 mg/dl (1.8-2.4); Phosphorus 2.8 mg/dl (2.5-4.9); Potassium 4.9 mmol/L (3.5-5.1)
[2019-07-30 07:26] LABS: Basophils # (auto) 0.01 K/uL (0-0.2); Eosinophils # (auto) 0.18 K/uL (0-0.5); Eosinophils % (auto) 0.8 %; Immature Granulocytes # (auto) 0.11 K/uL (0.00-0.02); Immature Granulocytes % (auto) 0.5 %; Lymphocytes # (auto) 0.93 K/uL (1.2-3.4); Lymphocytes % (auto) 4.1 %; Monocytes # (auto) 1.13 K/uL (0.11-0.59); Neutrophils # (auto) 20.22 K/uL (1.4-6.5); Neutrophils % (auto) 89.6 %
--- NOTE | 2019-07-30 07:55 | Pulmonology Progress Note ---
Date of Service July 30, 2019 Assessment & Plan (1) Mass of lower lobe of left lung: Impression: 78-year-old male with history of tobacco abuse presenting with left lower lobe lung lesion and left chest wall mass. Lesion was biopsied in [place] 2 weeks ago. The patient states that he was advised by someone in that system that he had cancer, he states he was told he had bone cancer. He is not seen an oncologist. Recommendations: 1. Chest wall mass: Awaiting path report from outside hospital. Multiple attempts made yesterday and unable to speak to anyone in the pathology department. According to the resident note, the request for medical records has been filed and is currently pending. I do not believe the patient needs to be hospitalized at this point in time for those results but will defer to the primary service. If this is a malignancy which certainly appears to be the case, it is advanced. He had a noncontrast CT scan of the head which would not be an adequate staging procedure and would recommend CT with contrast or MRI of the brain to complete staging. He would also require an outpatient PET scan. As the patient is a poor historian, I cannot sense whether or not the studies had been obtained previously. They definitely do not need to be done during an inpatient stay. The patient has not, by his report, established with medical oncology or radiation oncology which certainly would be recommended. Again this is not necessary during his inpatient stay. Palliative care consultation is recommended given the advanced nature of his malignancy. Addressing of CODE STATUS would be griggs. I will enter a palliative care consult. Recommend transition from parenteral pain medications to oral medications. If the patient's pain can be adequately controlled, he can likely be dismissed from the hospital once a treatment plan is in place. 2. Pleural effusion: Possibly malignant however the patient is likely already staged (T4/M1) once we get pathology report from [facility]. Given the fact that he is asymptomatic from a pulmonary standpoint without shortness of breath cough or symptoms referrable to the pleural effusion, I would defer intervention at this point time. I discussed with him proceeding with a thoracentesis however he states he would like to hold off for now although again his ability to make medical decisions is in question. Anticoagulation can be initiated from a pulmonary perspective as again I do not anticipate the need for procedures at this point in time. If the patient should have symptoms referrable to a pleural effusion, outpatient thoracentesis may be appropriate. 3. History of COPD: PFTs not available. The patient is not overtly bronchospastic. Would continue Anoro. He is on prednisone for his bullous pemphigoid, not underlying lung disease 4. Possible pneumonia: Review of the patient's CT scan does not demonstrate a clear infiltrative process other than the lung mass. He is currently being tr eated with cefepime. Cultures are negative. CBC remains elevated with leukocytosis which may be reactive and is decreasing today. He had one fever on the . Cultures remain negative to date. Will discontinue cefepime and change to oral Ceftin for additional 3 days Available to see if needed. Call if questions (2) Pleural effusion, left: (3) Mass of left chest wall: Apparently, per the patient, he had a biopsy in [place]. Recommend obtaining records prior to proceeding with repeat biopsy of the chest wall mass. He also has a left lower lobe mass that is potentially amenable to biopsy via bronchoscopy if necessary. Additionally, he has a left sided pleural effusion which ideally would be tapped as this may potentially help with staging a malignancy as well. However, given his underlying mental status and the inability to find a DURABLE POWER OF SCOUTS at this time, I will defer a thoracentesis until he demonstrates either medical decision-making capacity or we have an individual that can consent for him. Pulmonary will continue to follow. Thanks for the consult. Admission and Anticipated Discharge Date Admission Date: July 26, 2019 Subjective Patient seen and examined. He reports his pain is adequately controlled. No new respiratory complaints. He remains on room air. We are still pending resul ts from his prior biopsy. Physical Exam Constitutional: well developed; not ill appearing Neck: trachea midline, no thyromegaly Respiratory: Decreased breath sounds left lung base Cardiovascular: RRR, no murmur, no edema Gastrointestinal (Abdomen): normal bowel sounds, soft, nontender, no hepatosplenomegaly Musculoskeletal: Extremities: extremities normal to inspection Skin: no rashes, warm and dry Lymphatic: no cervical lymphadenopathy Results & Data Results & Data ([facility]) Vital Signs (Past 12 Hours) Vital Signs Temp Pulse Pulse Resp BP Pulse Ox 07/30/19 07:36 36.5 C 90 18 120/84 95 07/30/19 03:22 36.6 C 79 18 114/70 93 07/29/19 23:59 81 07/29/19 22:50 36.7 C 60 16 125/71 96 Laboratory Results 07/30/19 06:41 07/30/19 06:41 Diagnostic Findings No new films PG Care Time/CCT Total # of Minutes Spent Total Time Spent with Patient: Total time spent is greater than 50% in coordination of care (as documented) at patient's floor/unit and/or counseling patient: Coding Level of Care Code 28025 Subseq Hosp Care Lvl 2 Diagnoses Mass of lower lobe of left lung R91.8 Pleural effusion, left J90 Mass of left chest wall R22.2
[2019-07-30] MEDS: METOPROLOL TARTRATE 50 MG TAB PO SCH ×2 (08:30→20:32)
[2019-07-30] MEDS: predniSONE 2.5 MG TAB PO SCH (08:30)
[2019-07-30] MEDS: MENTHOL-ZINC OXIDE 360 APPLN/120 GM TUBE EXT SCH ×2 (08:30→22:12)
[2019-07-30] MEDS: PRAVASTATIN SOD 20 MG TAB PO SCH (08:30)
[2019-07-30] MEDS: UMECLIDINIUM/VILANTEROL 62.5/25MCG 7 PUFFS/INHALER INH SCH (08:31)
[2019-07-30] MEDS: cefUROXime axetil 500 MG TAB PO SCH ×2 (08:31→20:32)
[2019-07-30] MEDS: INSULIN ASPART 100 UNITS/ML 3 ML PEN SC SCH ×4 (08:32→20:27)
[2019-07-30] MEDS: EZETIMIBE 10 MG TABLET PO SCH (10:37)
--- NOTE | 2019-07-30 13:08 | Hospitalist Progress Note ---
Date of Service July 30, 2019 Assessment & Plan (1) Atrial flutter with rapid ventricular response: 78 yo M PMHx recently diagnosed L lung mass, DM2, HTN, Anxiety/Depression, Bullous Pemphigoid, CKD with baseline ~1.8, COPD admitted for Aflutter with RVR, MEGHNA, and uncontrolled pain 2/2 lung mass. ED Course: 1L NSS, Heparin drip, Morphine 2mg Fever and Luekocytosis: -Likely secondary to pneumonia possibly post obstructive -COVID testing negative, removed from airborne precautions - Leukocytosis White count improved today to 22.9 - UA without signs of infection; UCx collected showing skin taylor. No urinary symptoms. - CXR performed showing minimally progressive interstitial prominence at right lung base. - BCx x2 performed NGTD; MRSA nares swab negative, cefepime initiated for likely lung as primary source of infection given destructive mass and new CXR findings Pulmonology stepped down to PO cefuroxime. New Onset Atrial Flutter with RVR:due to Lung cancer,post-obstructive pneumonia, and dehydration associated MEGHNA. -Stopped dilt drip last night, patient now on metoprolol BID and dixoxin .125 mg - Rate well controlled. - Echo showed normal LVEF, no valvular abnormalities. - After discussion of pros cons with , decided to start patient on eliquis for anticoagulation MEGHNA pre renal improving with hydration Improving creatinine 1.7 this morning down from 2.86 on admission Lung carcinoma, recently diagnosed: - Per report from [place] left pleural-based malignancy had increased in size from approximately 6.3cm to 7.7cm since 07/03/2019. - CXR here revealed a large destructive mass involving the L axilla and L upper chest and several ribs. - CT Head, Chest, Abdomen/Pelvis w/o con ordered: - CTAP without signs of metastasis. - CT chest shows lung mass of about 8cm in size at largest diameter with extension into the axilla, as well as lymphadenopathy to 4.5 cm. - Patient reports having had a lung biopsy several weeks ago at [facility]; will attempt to get records. - Patient notes 40 year 1PPD history of smoking, quit 15 years ago. - Transitioning patient to oral pain control with oxycodone 5 mg q4h - Will set patient up with outpatient oncology and pulmonology follow up for lung mass and records request has been sent to [facility] Recommending diagnostic tap of pleural effusion unless already performed and brain MRI and PET scan to complete staging. COPD: - PFT 09/05/18 noted moderate obstruction and air trapping per chart review. - Continue Albuterol PRN. - Continue Anoro Ellipta. - Titrate oxygen as needed; patient normally not on oxygen at home; oxygenating well on room air at present DM2: - HOLD Lantus. - Continuing correction factor of 30 mg/dl/unit. - REMOVING carb ratio. - Continuing goal range of Low 110 mg/dL - High 140 mg/dL. HTN/HLD - Continue Zetia. - Continue pravastatin. Bullous Pemphigoid - Continue Prednisone 2.5mg daily. Dispo: Telemetry FEN: Heart Healthy, NSS 100ml/hr DVT: SCDs Code: Full (2) Acute kidney injury: (3) Lung mass: (4) COPD (chronic obstructive pulmonary disease): (5) DM2 (diabetes mellitus, type 2): (6) HTN (hypertension): (7) Bullous pemphigoid: (8) Metabolic acidosis: Admission and Anticipated Discharge Date Admission Date: July 26, 2019 Supervising Physician Co-Signing Physician Notes Resident Physician Supervision Note: I independently interviewed and examined the patient and verified the griggs history and physical, reviewed labs and image studies, discussed the case with the resident Dr. Schmid and agree with the findings and care plan. Brody Phillips remains quite confused, try to get out of his bed swinging his legs around time he is meeting that he missed for breakfast. Is able to answer questions, but not able to repeat any information or teach back in any way. Denies any pain or complaints at present however was moaning for nurse and received morphine earlier today. Discussed case with patient's , she is amenable to patient going to SNF or acute rehab, does not feel is any way you want to care for him at home he lives alone and has for the last 20 years, no one checks in on him, him and is been for previous 20 years however she makes decisions for him and takes care of his finances. Review of Systems Review of Systems: All systems reviewed & are unremarkable except as noted in HPI & below Physical Exam Physical Exam: Constitutional: WD/WN, vitals as above resting comfortably in bed eating breakfast Respiratory: normal respiratory effort, lungs clear to auscultation Cardiovascular: Regular rate, irregularlyl irregular rhythm normal S1 and normal S2 Gastrointestinal (Abdomen): Abdomen soft/NT no masses, no organomegalyl Skin: no rashes, warm and dry several areas of ecchymosis of bilateral arms at former IV sites Results & Data Results & Data ([facility]) Vital Signs (Past 12 Hours) Vital Signs Temp Pulse Resp BP Pulse Ox 07/30/19 12:48 36.6 C 59 L 16 131/71 98 07/30/19 07:36 36.5 C 90 18 120/84 95 07/30/19 03:22 36.6 C 79 18 114/70 93 Resident Activity Tracking Resident Involvement: Resident Care Provided Care Provided: Adult Hospital Medicine (1) COPD (chronic obstructive pulmonary disease) COPD type: unspecified COPD Qualified Code(s): J44.9 - Chronic obstructive pulmonary disease, unspecified
--- NOTE | 2019-07-30 14:58 | Pharmacy Report ---
Pharmacy Glycemic Short Note 2 - Date of Service July 30, 2019 - Glycemic Short BSG Results (Last 24 hours): 07/29/19 07/29/19 07/30/19 17:20 20:18 06:41 Glucose 130 H POC Glucose 173 H 137 H 07/30/19 07/30/19 07:20 11:09 Glucose POC Glucose 125 H 146 H OUTPATIENT ANTIDIABETIC REGIMEN: * Amaryl 2mg PO qAM * HbA1c: 7.4% (07/29/19) ASSESSMENT: * Patient's BSGs have been well-controlled, with the use of Novolog only. * No changes required at this time. PLAN FOR INPATIENT GLYCEMIC CONTROL: * Hold outpatient oral diabetes medications * Basal insulin * None * Bolus insulin * NovoLog per scale ACHS or Q6hrs while NPO * Goal Range: Low 110 mg/dL - High 140 mg/dL * Correction Factor: 30 mg/dL/unit * Nutritional / Prandial insulin per carb ratio of 1 unit per 15 grams CHO consumed PLAN FOR DISCHARGE: * Patient's A1c (7.4%) indicates acceptable glycemic control in a 78yo patient with multiple comorbidities. * Expect that patient may resume home regimen on discharge, as long as he does not report having episodes of hypoglycemia. If patient's renal function worsens, or does not return to baseline on discharge, may need to stop or reduce Amaryl dose.
[2019-07-30] MEDS: DIGOXIN 0.125 MG TAB PO SCH (17:14)
[2019-07-30] MEDS: ONDANSETRON 4 MG OD TAB PO PRN (20:16)
[2019-07-30] MEDS: APIXABAN 5 MG TABLET PO SCH (20:32)
[2019-07-30] MEDS ORDERED: METOPROLOL TARTRATE 1 MG/ML VIAL IV STA (21:27)
[2019-07-31] MEDS: MoRPHine SULFATE 4 MG/ML 1 ML CARP\\VIAL IV PRN ×3 (01:57→12:42)
[2019-07-31] MEDS ORDERED: METOPROLOL TARTRATE 1 MG/ML VIAL IV STA (02:37)
[2019-07-31 07:47] LABS: Hematocrit (blood only) 34.1 % (42-52); Hemoglobin 10.6 g/dL (14.0-18.0); Mean Corpuscular Hemoglobin 26.7 pg (25-34); Mean Corpuscular Hgb Conc 31.1 g/dL (32-36); Mean Corpuscular Volume 85.9 fL (80-100); Mean Platelet Volume 9.8 fL (7.4-10.4); Platelet Count 187 K/uL (130-400); RDW Coefficient of Variation 16.8 % (11.5-14.5); RDW Standard Deviation 52.7 fL (36.4-46.3); Red Blood Count 3.97 M/uL (4.7-6.1); White Blood Count 28.11 K/uL (4.8-10.8)
[2019-07-31 08:09] LABS: Basophils # (auto) 0.02 K/uL (0-0.2); Basophils % (auto) 0.1 %; Eosinophils % (auto) 0.7 %; Immature Granulocytes # (auto) 0.14 K/uL (0.00-0.02); Immature Granulocytes % (auto) 0.5 %; Lymphocytes # (auto) 1.07 K/uL (1.2-3.4); Lymphocytes % (auto) 3.8 %; Monocytes # (auto) 1.61 K/uL (0.11-0.59); Monocytes % (auto) 5.7 %; Neutrophils # (auto) 25.07 K/uL (1.4-6.5); Neutrophils % (auto) 89.2 %
[2019-07-31] MEDS: PRAVASTATIN SOD 20 MG TAB PO SCH (08:10)
[2019-07-31] MEDS: METOPROLOL TARTRATE 50 MG TAB PO SCH ×2 (08:10→19:43)
[2019-07-31] MEDS: APIXABAN 5 MG TABLET PO SCH ×2 (08:10→19:43)
[2019-07-31] MEDS: predniSONE 2.5 MG TAB PO SCH (08:10)
[2019-07-31] MEDS: EZETIMIBE 10 MG TABLET PO SCH (08:10)
[2019-07-31] MEDS: INSULIN ASPART 100 UNITS/ML 3 ML PEN SC SCH ×4 (08:10→20:45)
[2019-07-31] MEDS: cefUROXime axetil 500 MG TAB PO SCH ×2 (08:10→19:43)
[2019-07-31] MEDS: MENTHOL-ZINC OXIDE 360 APPLN/120 GM TUBE EXT SCH ×2 (08:11→19:53)
[2019-07-31] MEDS: UMECLIDINIUM/VILANTEROL 62.5/25MCG 7 PUFFS/INHALER INH SCH (08:11)
[2019-07-31 08:20] LABS: BUN Creatinine Ratio 27.6 (10-20); Calcium 10.4 mg/dl (8.5-10.1); Creatinine Clr Calc Pharmacy 33.1 ml/min; Est GFR (African American) 39.3; Est GFR (Non-African American) 33.9; Potassium 5.5 mmol/L (3.5-5.1)
[2019-07-31] MEDS ORDERED: POLYETHYLENE (MIRALAX) 17 GM PACK PO ONE (08:37)
--- NOTE | 2019-07-31 09:01 | XRay Report ---
SINGLE VIEW CHEST CLINICAL HISTORY: Dyspnea. FINDINGS: An AP, portable, upright chest radiograph is compared to study dated 07/28/2019 and correlat ed with chest CT dated 07/27/2019. The examination is degraded by portable technique and patient rotat ion. The heart is enlarged noting atherosclerotic calcification of the thoracic aorta. The pulmonar y vasculature is noncongested. Large left pulmonary mass lesions are similar to previous. There is a left pleural effusion with associated left basilar consolidation. The right lung appears clear. No pn eumothorax is seen. The skeletal structures are osteopenic. Destructive change is noted involving lef t upper ribs.. IMPRESSION: 1. Left pulmonary mass lesions are similar to previous.. 2. There is a small left pleural effusion with left basilar consolidation. This is similar to 07/28/19 20. 3. Cardiomegaly without radiographic evidence of congestive failure. ACT 112: Negative or not required by law. Electronically signed by: Colin Sanabria M.D. 07/31/2019 8:59 AM
[2019-07-31 09:07] LABS: Phosphorus 3.3 mg/dl (2.5-4.9)
--- NOTE | 2019-07-31 13:10 | Hospitalist Progress Note ---
Date of Service July 31, 2019 Assessment & Plan (1) Atrial flutter with rapid ventricular response: 78 yo M PMHx recently diagnosed L lung mass, DM2, HTN, Anxiety/Depression, Bullous Pemphigoid, CKD with baseline ~1.8, COPD admitted for Aflutter with RVR, MEGHNA, and uncontrolled pain 2/2 lung mass. ED Course: 1L NSS, Heparin drip, Morphine 2mg Altered Mental Status patient remains confused and unable to perform activities of daily living Delirium, vs dementia, no prior baseline known. Possible secondary to stroke or brain mets Will order brain MRI today, will need placement upon discharge and help getting to appointments and making decisions. Patient's current decision maker is to whome he's been and living separately from for over 20 years. Fever and Luekocytosis: -Likely secondary to pneumonia possibly post obstructive -COVID testing negative, removed from airborne precautions - Leukocytosis White count elevated today to 28.11 - UA without signs of infection; UCx collected showing skin taylor. No urinary symptoms. - Repeat CXR performed today with minimal changes - BCx x2 performed NGTD; MRSA nares swab negative, cefepime initiated for likely lung as primary source of infection given destructive mass and new CXR findings Pulmonology stepped down to PO cefuroxime New Onset Atrial Flutter with RVR:due to Lung cancer,post-obstructive pneumonia, and dehydration associated MEGHNA. -Stopped dilt drip, patient now on metoprolol BID and dixoxin .125 mg Required 1 IV lopressor push overnight - Rate well controlled presently - Echo showed normal LVEF, no valvular abnormalities. - After discussion of pros cons with , decided to start patient on eliquis for anticoagulation MEGHNA pre renal improving with hydration 1.87 currently up slightly from yesterday but down from 2.86 on admission Lung carcinoma, recently diagnosed: - Per report from [place] left pleural-based malignancy had increased in size from approximately 6.3cm to 7.7cm since 07/03/2019. - CXR here revealed a large destructive mass involving the L axilla and L upper chest and several ribs. 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 - CT Head, Chest, Abdomen/Pelvis w/o con ordered: - CTAP without signs of metastasis. - CT chest shows lung mass of about 8cm in size at largest diameter with extension into the axilla, as well as lymphadenopathy to 4.5 cm. - Patient reports having had a lung biopsy several weeks ago [facility]; will attempt to get records. - Patient notes 40 year 1PPD history of smoking, quit 15 years ago. - Transitioning patient to oral pain control with oxycodone 5 mg q4h - Will set patient up with outpatient oncology and pulmonology follow up for lung mass and records request has been sent to [facility] Recommending diagnostic tap of pleural effusion unless already performed and brain MRI and PET scan to complete staging. - Brain MRI ordered for today, rest of workup to be completed as outpatient COPD: - PFT 09/05/18 noted moderate obstruction and air trapping per chart review. - Continue Albuterol PRN. - Continue Anoro Ellipta. - Titrate oxygen as needed; patient normally not on oxygen at home; oxygenating well on room air at present DM2: - HOLD Lantus. - Continuing correction factor of 30 mg/dl/unit. - REMOVING carb ratio. - Continuing goal range of Low 110 mg/dL - High 140 mg/dL. HTN/HLD - Continue Zetia. - Continue pravastatin. Bullous Pemphigoid - Continue Prednisone 2.5mg daily. Dispo: Telemetry hope to step down to med surg tomorrow am FEN: Heart Healthy, NSS 100ml/hr DVT: SCDs Code: Full (2) Acute kidney injury: (3) Lung mass: (4) COPD (chronic obstructive pulmonary disease): (5) DM2 (diabetes mellitus, type 2): (6) HTN (hypertension): (7) Bullous pemphigoid: (8) Metabolic acidosis: Admission and Anticipated Discharge Date Admission Date: July 26, 2019 Supervising Physician Co-Signing Physician Notes Resident Physician Supervision Note: I independently interviewed and examined the patient and verified the griggs history and physical, reviewed labs and image studies, discussed the case with the resident Dr. Schmid and agree with the findings and care plan. Subjective Spencer Castillo had an episode of RVR this morning, was given lopressor which helped heart rhythm. He is also breathing more shallowly and rapidly. On questioning he remains asymptomatic but is still confused and oriented only to person. Review of Systems Review of Systems: All systems reviewed & are unremarkable except as noted in HPI & below and Unobtainable due to cognitive status Physical Exam Physical Exam: Constitutional: WD/WN, vitals as above resting comfortably in bed eating breakfast Respiratory: increased respiratory effort, tachypneic, Bilateral crackles, decreased air entry globally Cardiovascular: Tachycardic, irregularly irregular rhythm normal S1 and normal S2 Gastrointestinal (Abdomen): Abdomen distended soft mildly Tender no masses midline hernia present no organomegaly Skin: no rashes, warm and dry several areas of ecchymosis of bilateral arms at former IV sites Results & Data Results & Data ([facility]) Vital Signs (Past 12 Hours) Vital Signs Temp Pulse Pulse Resp BP BP Pulse Ox 07/31/19 10:40 36.6 C 85 25 H 110/72 99 07/31/19 03:23 37 C 106 H 18 129/66 98 07/31/19 02:48 120 H 125/76 07/31/19 02:08 145 H 125/83 98 Resident Activity Tracking Resident Involvement: Resident Care Provided Care Provided: Adult Hospital Medicine (1) COPD (chronic obstructive pulmonary disease) COPD type: unspecified COPD Qualified Code(s): J44.9 - Chronic obstructive pulmonary disease, unspecified
--- NOTE | 2019-07-31 13:41 | Magnetic Resonance Report ---
MRI OF THE BRAIN WITHOUT IV CONTRAST CLINICAL HISTORY: Change in mental status. COMPARISON STUDY: CT of the brain dated 07/27/2019. TECHNIQUE: MRI of the brain was performed utilizing various T1 and T2-weighted sequences in the axial , sagittal, and coronal planes. IV contrast was not administered for this examination. Examination is modestly degraded by motion artifact. FINDINGS: Brain parenchyma: Question 2 punctate foci of restricted diffusion identified in the left parietal wh ite matter seen on axial images #13 and #14. No additional foci of restricted diffusion are suggested . There is no hemorrhage or mass effect. There is age-related involutional change noting mild subcort ical and periventricular microangiopathic disease. Tiny chronic lacunar infarcts are noted in the lef t basal ganglia and the cerebellum. Schulte-white matter differentiation is preserved. No extra-axial fl uid collection is seen. The cerebellar tonsils are normal in configuration. Ventricles, sulci, and cisterns: Prominent secondary to involutional change. Pituitary and sella: Unremarkable. Intracranial vasculature: Normal flow voids are maintained at the skull base. Orbits: The bony orbits are grossly intact. Orbital contents are normal in appearance. Sinuses and mastoids: Clear. Calvarium: Unremarkable. Cervical cord: Partially visualized cervical spinal cord is normal in morphology and signal intensity . IMPRESSION: 1. Question 2 punctate foci of restricted diffusion versus artifact within the left posterior parieta l white matter. Tiny acute to subacute lacunar infarcts are not excluded. 2. No additional foci of restricted diffusion are identified. 3. There is no hemorrhage or mass effect. ACT 112: Negative or not required by law. Electronically signed by: Colin Sanabria M.D. 07/31/2019 1:39 PM
[2019-07-31] MEDS: DIGOXIN 0.125 MG TAB PO SCH (17:01)
[2019-07-31] MEDS: METOPROLOL TARTRATE 1 MG/ML VIAL IV PRN (19:45)
[2019-08-01] MEDS: METOPROLOL TARTRATE 1 MG/ML VIAL IV PRN ×3 (02:17→08:12)
[2019-08-01] MEDS: MoRPHine SULFATE 4 MG/ML 1 ML CARP\\VIAL IV PRN (04:29)
[2019-08-01 08:14] LABS: Hematocrit (blood only) 31.9 % (42-52); Hemoglobin 9.7 g/dL (14.0-18.0); Mean Corpuscular Hemoglobin 26.5 pg (25-34); Mean Corpuscular Hgb Conc 30.4 g/dL (32-36); Mean Corpuscular Volume 87.2 fL (80-100); Mean Platelet Volume 10.2 fL (7.4-10.4); Platelet Count 190 K/uL (130-400); RDW Standard Deviation 53.1 fL (36.4-46.3); Red Blood Count 3.66 M/uL (4.7-6.1); White Blood Count 27.32 K/uL (4.8-10.8)
[2019-08-01] MEDS: predniSONE 2.5 MG TAB PO SCH (08:29)
[2019-08-01] MEDS: cefUROXime axetil 500 MG TAB PO SCH (08:29)
[2019-08-01] MEDS: APIXABAN 5 MG TABLET PO SCH (08:29)
[2019-08-01] MEDS: INSULIN ASPART 100 UNITS/ML 3 ML PEN SC SCH ×2 (08:32→11:36)
[2019-08-01 08:51] LABS: BUN Creatinine Ratio 30.9 (10-20); Calcium 10.9 mg/dl (8.5-10.1); Creatinine Clr Calc Pharmacy 34.4 ml/min; Est GFR (African American) 41.2; Est GFR (Non-African American) 35.5; Potassium 5.7 mmol/L (3.5-5.1)
[2019-08-01] MEDS: EZETIMIBE 10 MG TABLET PO SCH (08:51)
[2019-08-01] MEDS: PRAVASTATIN SOD 20 MG TAB PO SCH (08:51)
[2019-08-01] MEDS ORDERED: SODIUM CHLORIDE 0.9% 1000ML 1,000 ML IV SCH (09:15)
--- NOTE | 2019-08-01 09:16 | Palliative Care Consultation ---
Date of Consultation August 01, 2019 Assessment & Plan (1) Goals of care, counseling/discussion: -78 year old male patient with PMH left lung mass, DM2, HTN, Anxiety/Depression, Bullous Pemphigoid, CKD, and COPD, and others, presented as a transfer from [place] ED six days ago for new onset A Flutter, SOB, and lung mass. Patient was given IV Cardizem for aflutter, on heparin gtt which was started at [place]. Cardiology consulted. Per report from [place], patient has left pleural-based malignancy had increased in size from approximately 6.3cm to 7.7cm since 07/03/2019. CXR here revealed a large destructive mass involving the left axilla and left upper chest and several ribs. CT Head, Chest, Abdomen/Pelvis w/o contrast obtained due to MEGHNA-- creatinine ~1.8 at baseline and was 2.8 on admission. CTAP without signs of metastasis. CT chest shows lung mass of about 8cm in size at largest diameter with extension into the axilla, as well as lymphadenopathy to 4.5 cm. Patient and report patient having had a lung biopsy several weeks ago at [facility]-- those records have been requested. Pulmonology consulted here at [facility]-- deferring any biopsy or thoracentesis until records have been received from [place] and we are able to contact family for decision making as patient is somewhat confused and doesn't always answer appropriately. Patient is being treated with abx for pneumonia. 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 Pulm notes that patient's disease is already advanced, and need to discuss code status and goals of care. Palliative care is consulted. -Patient to be seen by palliative MD this afternoon. According to attending physician who I spoke with, as well as nursing, patient remains delirious and confused. He is refusing medications. His heart rate continues to be abnormal and tachycardic. -Spoke with patients at length. Elda has known patient for a long time, they have been for many years, but have been living separately for the past 20 years. However, they have remained close. Elda is in charge of patient's finances and paying bills. She states that it was easier for her to continue these things as patient "wasn't able to get out and do these things." -We discussed patient's pathology results. She is aware that patient has malignancy. I discussed that patient's disease is already advanced. He remains confused and delirious, he is having issues with his heart rate, and he has been refusing medications. She was surprised to hear this and said that patient's confusion has only started since he has been feeling ill. Prior to this, he had no issues with cognition per the . -Elda stated that while they did not specifically discuss goals of care, patient had indicated that he wanted to be aggressive with his possible diagnosis. She states he was planning to meet with a radiation oncologist at some point. She wants to continue for medical treatment at this time, and I explained that he is ill enough at this point that treatments for the cancer such as radiation and chemo therapy may be difficult. -We discussed code status. After talking about this in detail, she states that patient would not want to have CPR or intubation. She is comfortable making patient a DNR/DNI at this point. -Patient has no children. states he has no siblings or other family members. She is the only person to make decisions for patient. I asked if she was able to make a bedside visit to see patient and discuss goals of care. However, she states she is in a wheelchair and not in great health herself. She also has no way of getting to the hospital. She is going to call in to the nurses' station and attempt to speak with patient on phone. -Elda is aware patient will need placement after hospitalization. she is in agreement with this. -Attending physician updated and will call Elda for further discussion as well -We will continue to follow. (2) Atrial flutter with rapid ventricular response: (3) Mass of lower lobe of left lung: (4) Pleural effusion, left: Supervising Physician Co-Signing Physician Notes Chart reviewed, patient seen and examined. Collaborated with DRAKE Dennis as well as resident physician Dr. Obi Schmid. With patient's rapid decline-patient is now comfort measures only. Patient appears comfortable on O2 at 3 L via oxymask. Discussed with resident physician discontinuing meds except for comfort meds and his metoprolol. Metoprolol can be crushed-nursing reports patient able to take meds and putting. Patient has lost his IV access-we will continue metoprolol as long as he is able to take crushed meds p.o. Comfort meds may be given sublingual. PE: Patient awake, appears comfortable at rest. Patient appears confused, speech is mumbled and not understandable. HEENT: EOMI, hearing appears to be within normal limits Respirations: Unlabored, comfortable on O2 via oxymask CV: Regular rate, no lower extremity edema Abdomen: Soft, nontender Neuro: Confused, unable to make needs known-unable to participate in medical decision making. Agree with above note, assessment and plan as per DRAKE Dennis-we will continue to follow and provide support to patient's . History of Present Illness Attending Physician: Kenia Rodriguez MD History of Present Illness This 78 year old male patient with PMH left lung mass, DM2, HTN, Anxiety/Depression, Bullous Pemphigoid, CKD, and COPD, and others, presented as a transfer from [place] ED six days ago for new onset A Flutter, SOB, and lung mass. Patient was given IV Cardizem for aflutter, on heparin gtt which was started at [place]. Cardiology consulted. Per report from [place], patient has left pleural-based malignancy had increased in size from approximately 6.3cm to 7.7cm since 07/03/2019. CXR here revealed a large destructive mass involving the left axilla and left upper chest and several ribs. CT Head, Chest, Abdomen/Pelvis w/o contrast obtained due to MEGHNA-- creatinine ~1.8 at baseline and was 2.8 on admission. CTAP without signs of metastasis. CT chest shows lung mass of about 8cm in size at largest diameter with extension into the axilla, as well as lymphadenopathy to 4.5 cm. Patient and report patient having had a lung biopsy several weeks ago at [facility]-- those records have been requested. Pulmonology consulted here at [facility]-- deferring any biopsy or thoracentesis until records have been received from [place] and we are able to contact family for decision making as patient is somewhat confused and doesn't always answer appropriately. Patient is being treated with abx for pneumonia. 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 Pulm notes that patient's di sease is already advanced, and need to discuss code status and goals of care. Palliative care is consulted. Thank you kindly for this consult. Palliative care team will follow as needed. Allergies Allergy/AdvReac Type Severity Reaction Status Date / Time No Known Allergies Allergy Unverified 07/26/19 22:01 Home Medications Home Medications Medication Instructions Recorded Confirmed Type albuterol sulfate [Ventolin HFA] 2 puff INHALATION UD PRN 07/26/19 07/26/19 History amlodipine 5 mg PO DAILY 07/26/19 07/26/19 History ezetimibe 10 mg PO DAILY 07/26/19 07/26/19 History glimepiride 2 mg PO DAILY 07/26/19 07/26/19 History hydrocodone-acetaminophen [[place]] 1 tab PO UD PRN 07/26/19 07/26/19 History losartan 50 mg PO DAILY 07/26/19 07/26/19 History metoprolol tartrate 25 mg PO TID 07/26/19 07/26/19 History naproxen sodium [Aleve] 440 mg PO BID PRN 07/26/19 07/26/19 History pravastatin 20 mg PO DAILY 07/26/19 07/26/19 History prednisone 2.5 mg PO DAILY 07/26/19 07/26/19 History umeclidinium-vilanterol [Anoro 1 ea INHALATION UD 07/26/19 07/26/19 History Ellipta] Patient History Medical History (Updated 08/01/19 @ 11:46 by Colin Mahan PA-C) Mass of left chest wall Mass of lower lobe of left lung Pleural effusion, left Social History Preferred Language: Nepali Communication Ability: Impaired Blanking Press Operator Required: No Beliefs That Will Affect Care: None Current Living Situation: Alone Feels Safe at Home: Yes Smoking Status: Former smoker Hx Alcohol Use: No Hx Substance Use: No Results & Data Vital Signs (Past 12 Hours) Vital Signs Temp Pulse Pulse Resp BP BP BP 08/01/19 08:28 36.7 C 137 H 54 H 147/92 H 08/01/19 07:27 36.9 C 116 H 20 104/61 08/01/19 06:25 137 H 138/70 08/01/19 03:49 36.6 C 92 H 18 104/54 L 08/01/19 02:17 131 H 131/86 07/31/19 23:06 36.6 C 73 18 130/80 Pulse Ox 08/01/19 08:28 97 08/01/19 07:27 99 08/01/19 06:25 08/01/19 03:49 97 08/01/19 02:17 07/31/19 23:06 98 Coding Level of Care Code 22429 Inpt Consult Level 3 Diagnoses Goals of care, counseling/discussion Z71.89 Atrial flutter with rapid ventricular response I48.92 Mass of lower lobe of left lung R91.8 Pleural effusion, left J90 Time Spent (min) 70 Time Spent Midlevel A total of 70 minutes spent by this CORRESPONDENCE ANALYST In reviewing chart, speaking with attending in palliative physicians, as well as speaking with family regarding patient condition, goals of care, and code status.
[2019-08-01] MEDS: UMECLIDINIUM/VILANTEROL 62.5/25MCG 7 PUFFS/INHALER INH SCH (09:37)
[2019-08-01] MEDS: METOPROLOL TARTRATE 25 MG TAB PO SCH ×2 (09:38→20:52)
[2019-08-01] MEDS: MENTHOL-ZINC OXIDE 360 APPLN/120 GM TUBE EXT SCH ×2 (09:39→20:48)
[2019-08-01] MEDS ORDERED: SODIUM CHLORIDE 0.9% 1000ML 1,000 ML IV ONE (09:39)
[2019-08-01 09:46] LABS: Anisocytosis Present; Basophils # (auto) 0.03 K/uL (0-0.2); Basophils % (auto) 0.1 %; Echinocytes 1+; Eosinophils # (auto) 0.22 K/uL (0-0.5); Eosinophils % (auto) 0.8 %; Immature Granulocytes # (auto) 0.12 K/uL (0.00-0.02); Immature Granulocytes % (auto) 0.4 %; Lymphocytes # (auto) 1.31 K/uL (1.2-3.4); Lymphocytes % (auto) 4.8 %; Monocytes # (auto) 1.51 K/uL (0.11-0.59); Monocytes % (auto) 5.5 %; Neutrophils # (auto) 24.13 K/uL (1.4-6.5); Neutrophils % (auto) 88.4 %; Spherocytes 1+
--- NOTE | 2019-08-01 10:02 | Pharmacy Report ---
Pharmacy Glycemic Sign Off Nt - Date of Service August 01, 2019 - Assessment & Plan ASSESSMENT: * Pharmacy was consulted by Dr Ansari on 07/27/19 for glycemic control and to write orders per [facility] inpatient glycemic control protocol. * Major changes made by pharmacy to antidiabetic regimen include: * initiation of Novolog ACHS * Patient has been receiving/requiring <5 units of insulin per day for adequate glycemic control * BSGs ranging 131 - 163 mg/dl * Regimen has only required minor adjustments over the past 48hrs to achieve this level of control * Do not anticipate further changes in patient status that would quickly deteriorate glycemic control (i.e. patient to be NPO for upcoming procedure, steroids tapering, starting tube feedings, etc). * Please see recommendations for outpatient antidiabetic regimen below. PLAN FOR INPATIENT GLYCEMIC CONTROL: No changes needed to current regimen. * Continue NovoLog per scale ACHS/Q6hrs while NPO * Goal range = 110- 140 mg/dl * CF = 30 mg/dl/unit * CR = 1 unit for ever 10 g CHO consumed * Pharmacy is signing off of glycemic consult and will no longer be making adjustments to inpatient regimen. Please feel free to re-consult if needed. Thank you. DISCHARGE RECOMMENDATIONS: * A1c 7.4 % on 07/29/2019 * Continue home regimen
--- NOTE | 2019-08-01 10:23 | Hospitalist Progress Note ---
Date of Service August 01, 2019 Assessment & Plan (1) Goals of care, counseling/discussion: (2) Pleural effusion, left: (3) Mass of lower lobe of left lung: (4) Metabolic acidosis: (5) On continuous oral anticoagulation: (6) Mass of left chest wall: (7) Bullous pemphigoid: (8) HTN (hypertension): (9) DM2 (diabetes mellitus, type 2): (10) COPD (chronic obstructive pulmonary disease): (11) Atrial flutter with rapid ventricular response: 78 yo M PMHx recently diagnosed L lung mass, DM2, HTN, Anxiety/Depression, Bullous Pemphigoid, CKD with baseline ~1.8, COPD admitted for Aflutter with RVR, MEGHNA, and uncontrolled pain 2/2 lung mass. ED Course: 1L NSS, Heparin drip, Morphine 2mg Altered Mental Status patient remains confused and unable to perform activities of daily living Delirium, vs dementia, no prior baseline known. Possible secondary to stroke or brain mets Brain MRI showing artifact vs punctate lacunar lesions, patient certainly with risk factors having afib and just now started on anticoagulation No changes on neuro exam other than AMS Patient's current decision maker is to whom he's been and living separately from for over 20 years. She does check in on him and take care of his finances Considering the poor prognosis with underlying possible cognitive deficit, lung mass - discussed goals of care - She is unsure how much he would want done for this. She is in favor of making him DNR/DNI at this time. Will continue to discuss interventions both global approach mann and one by one with her to help decide his course of care. Fever and Luekocytosis: -Likely secondary to pneumonia possibly post obstructive -COVID testing negative, removed from airborne precautions - Leukocytosis White count remains elevated today to 27.32 - UA without signs of infection; UCx collected showing skin taylor. No urinary symptoms. - BCx x2 performed NGTD; MRSA nares swab negative, cefepime initiated for likely lung as primary source of infection given destructive mass and new CXR findings Pulmonology stepped down to PO cefuroxime New Onset Atrial Flutter with RVR: due to Lung cancer,post-obstructive pneumonia, and dehydration associated MEGHNA. -Stopped dilt drip, patient now on metoprolol BID and dixoxin .125 mg Required 1 IV lopressor push overnight - Rate well controlled presently - Echo showed normal LVEF, no valvular abnormalities. - After discussion of pros cons with , decided to start patient on eliquis for anticoagulation MEGHNA Patient appears dehydrated, BUN elevated to 56 creatinine down to 1.8 Patient also with mild hyperkalemia of 5.7 Will treat with normal saline one liter bolus now and 125 mls hour thereafter Lung carcinoma, recently diagnosed: - Per report from [place] left pleural-based malignancy had increased in size from approximately 6.3cm to 7.7cm since 07/03/2019. - CXR here revealed a large destructive mass involving the L axilla and L upper chest and several ribs. 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 - CT Head, Chest, Abdomen/Pelvis w/o con ordered: - CTAP without signs of metastasis. - CT chest shows lung mass of about 8cm in size at largest diameter with extension into the axilla, as well as lymphadenopathy to 4.5 cm. - Patient reports having had a lung biopsy several weeks ago at [facility]; will attempt to get records. - Patient notes 40 year 1PPD history of smoking, quit 15 years ago. - Transitioning patient to oral pain control with oxycodone 5 mg q4h - Plan to set patient up with outpatient oncology and pulmonology follow up for lung mass and records request has been sent to [place] - Pulm Recommended diagnostic tap of pleural effusion unless already performed and brain MRI and PET scan to complete staging. - No evidence of metastasis on brain MRI COPD: - PFT 09/05/18 noted moderate obstruction and air trapping per chart review. - Continue Albuterol PRN. - Continue Anoro Ellipta. - Titrate oxygen as needed; patient normally not on oxygen at home; oxygenating well on room air at present DM2: - HOLD Lantus. - Continuing correction factor of 30 mg/dl/unit. - REMOVING carb ratio. - Continuing goal range of Low 110 mg/dL - High 140 mg/dL. HTN/HLD - Continue Zetia. - Continue pravastatin. Bullous Pemphigoid - Continue Prednisone 2.5mg daily. Dispo: Telemetry for RVR FEN: Heart Healthy, NSS 125 ml/hr DVT: SCDs Code: Full (12) Acute kidney injury: (13) Lung mass: (14) Acute dehydration: Admission and Anticipated Discharge Date Admission Date: July 26, 2019 Supervising Physician Co-Signing Physician Notes Resident Physician Supervision Note: I independently interviewed and examined the patient and verified the griggs history and physical, reviewed labs and image studies, discussed the case with the resident Dr. Schmid and agree with the findings and care plan. Subjective Spencer Castillo appears to be doing much worse today, he is more tachypneic, his heart rate has been under worse control with rates in the 130'-150's. He appears to be in a large amount of pain moaning with any sort of movement or touch. He is less conversive than he has been. Discussed case with Palliative care and with of patient and she wishes him to be DNR/DNI but at this time wishes for all aggressive medical procedures to be performed short of intubation, chest compressions and shocks. She is understanding that this may be a fatal disease even if treated and she needs some time to think about what would be in Spencer's best interest. We made plans to talk further tomorrow. Patient currently without IV access as patient had his single access compromized when we went to bolus a liter. Review of Systems Review of Systems: Unobtainable due to cognitive status Physical Exam Physical Exam: Constitutional: Uncomfortable, moaning in bed, not able to maintain a conversation Respiratory: increased respiratory effort, tachypneic, Bilateral crackles, decreased air entry globally Cardiovascular: Tachycardic, irregularly irregular rhythm normal S1 and normal S2 Gastrointestinal (Abdomen): Abdomen distended soft mildly Tender no masses midline hernia present no organomegaly Skin: no rashes, warm and dry several areas of ecchymosis of bilateral arms at former IV sites, no current IV site available. Results & Data Results & Data ([facility]) Vital Signs (Past 12 Hours) Vital Signs Temp Pulse Pulse Resp BP BP BP 08/01/19 08:28 36.7 C 137 H 54 H 147/92 H 08/01/19 08:12 137 H 147/92 H 08/01/19 07:27 36.9 C 116 H 20 104/61 08/01/19 07:00 130 H 08/01/19 06:25 137 H 138/70 08/01/19 03:49 36.6 C 92 H 18 104/54 L 08/01/19 02:17 131 H 131/86 07/31/19 23:06 36.6 C 73 18 130/80 Pulse Ox 08/01/19 08:28 97 08/01/19 08:12 08/01/19 07:27 99 08/01/19 07:00 08/01/19 06:25 08/01/19 03:49 97 08/01/19 02:17 07/31/19 23:06 98 Resident Activity Tracking Resident Involvement: Resident Care Provided Care Provided: Adult Hospital Medicine (1) COPD (chronic obstructive pulmonary disease) COPD type: unspecified COPD Qualified Code(s): J44.9 - Chronic obstructive pulmonary disease, unspecified
[2019-08-01 10:25] LABS: Allen Test Pos (Pos); Base Excess ABG -5.3 mEq/L (-9-1.8); HCO3 ABG 18 mmol/L (19-24); Oxygen Saturation ABG 99.5 % (90-95); PCO2 ABG 30 mmHg (35-46); PO2 ABG 189 mmHg (80-95); pH ABG 7.41 (7.35-7.45)
[2019-08-01] MEDS ORDERED: ONDANSETRON 4 MG OD TAB SL PRN (10:45)
[2019-08-01] MEDS ORDERED: ONDANSETRON INJ 2 MG/ML 2 ML VIAL IV PRN (10:45)
[2019-08-01] MEDS ORDERED: ATROPINE SULFATE 1% OP SOLN 2 ML BTL SL PRN (11:15)
--- NOTE | 2019-08-01 11:24 | Communication Note ---
Date of Service: August 01, 2019 After multiple discussions with patient's , she believes due to his poor prognosis and daily decline that he would prefer to remain comfortable. I discu ssed this with the patient as well and though his communication is limited he seems to understand and agrees he wouldn't want to go through intensive therapy but would rather be made comfortable. Comfort care orders and transfer orders placed.
--- NOTE | 2019-08-01 11:38 | Pulmonology Progress Note ---
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 There is also a left lower lobe mass which is consistent with metastatic spread At this point patient has multiple comorbidities and is a poor candidate for salvage chemotherapy Primary team had long discussion with Elda and at this time patient is being converted to comfort measures only Agree with this in light of pathological findings and overall comorbid condition of the patient (2) COPD (chronic obstructive pulmonary disease): No PFTs available Patient with progressive hypoxia Currently on Oxymask Agree with conversion to DIRECTOR NICU COPD type: unspecified COPD Qualified Code(s): J44.9 - Chronic obstructive pulmonary disease, unspecified (3) Pleural effusion, left: Patient anticoagulated for probable malignancy with hypercoagulable condition Most likely malignant fluid inasmuch as needle biopsy of left upper anterior chest wall is positive for non-small cell carcinoma No intervention at this time Continue supportive and palliative care (4) Acute dehydration: We are asked to evaluate for central line versus other peripheral access Bedside ultrasound performed and no access is noted to bilateral upper extremities Patient does have a flat external jugular but would prefer not to access here due to anticoagulation, long muller, and change his status to comfort measures only Poor candidate for central line as patient has multiple relative contraindications Discussed with primary team Defer further management to them (5) Atrial flutter with rapid ventricular response: Patient currently tachycardic as well as tachypneic Most likely exacerbated from hypovolemia Unable to adequately hydrate secondary to poor venous access Convert to comfort measures only and transfer to nonmonitored floor Discussed with Dr. Peres who is in agreement. Pulmonary will continue remain signed off. Please feel free to reconsult as needed Admission and Anticipated Discharge Date Admission Date: July 26, 2019 Subjective Attending: Dr. Peres Patient seen and examined at bedside. He is awake and alert but confused. He is able to be reoriented easily. He indicates that he is short of breath but has no chest pain or tightness. He denies any significant cough. He is unaware of any production of sputum. He has no lower extremity pain. He is unaware of any fever, chills, sweats, rigors. Patient is a vasculopath and we are asked to reevaluate for IV access as well as further pulmonary recommendations. Patient has no acute complaints at this time. Review of Systems Review of Systems: All systems reviewed & are unremarkable except as noted in HPI & below Physical Exam Physical Exam: GENERAL : Moderate distress EYES: No icterus, gaze conjugate NOSE: No evidence of epistaxis MOUTH: No lesions or candidiasis. Mucosa is dry. Oxymask is in place NECK: Supple. There is no evidence of JVD LUNGS: Patient has bilateral rails at the bases. There is no evidence of bronchospasm or rhonchi. Patient is tachypneic with a respiratory rate in the 40s. HEART: Patient is tachycardic with a heart rate in the 130s. ABDOMEN: Soft, NT, ND, BS Present. No guarding or tenderness to palpation EXTREMITIES: No LE edema, pedal pulses intact NEURO: Awake and alert. Confused. Able to answer questions with single word answers. Requires frequent reorientation. Results & Data Results & Data ([facility]) Vital Signs (Past 12 Hours) Vital Signs Temp Pulse Pulse Resp BP BP Pulse Ox 08/01/19 08:28 36.7 C 137 H 54 H 147/92 H 97 08/01/19 08:12 137 H 147/92 H 08/01/19 07:27 36.9 C 116 H 20 104/61 99 08/01/19 07:00 130 H 08/01/19 06:25 137 H 138/70 08/01/19 03:49 36.6 C 92 H 18 104/54 L 97 08/01/19 02:17 131 H 131/86 Laboratory Results 08/01/19 07:57 08/01/19 07:57 Diagnostic Findings NEEDLE BIOPSY OF LEFT UPPER ANTERIOR CHEST WALL MASS 07/05/2019 AT [facility] Diagnosis: Poorly differentiated non-small cell carcinoma with squamous differentiation There is polymorphism and tumor morphology with some large bizarre tumor cells. According to the imaging study there is a left upper lobe lung mass. Based on the morphology and the immuneoprofile, considerations were given to squamous cell carcinoma or large anaplastic cell carcinoma, the diagnosis of the latter is best made on a resection specimen. The tumor cells also demonstrate immunoreactivity with P 40, BRADY-3, and thrombomodulin, and may be prudent to rule out a metastatic urothelial carcinoma clinically before signing the tumor as a pulmonary origin. PG Care Time/CCT Total # of Minutes Spent Total Time Spent with Patient: Total time spent is greater than 50% in coordination of care (as documented) at patient's floor/unit and/or counseling patient: 30 minutes including chart review and patient examination and interview Coding [place] [address] Subseq Hosp Care Lvl 2 Patient Type Established Medical Decision Making Moderate Complexity Diagnoses Carcinoma C80.1 COPD (chronic obstructive pulmonary disease) J44.9 COPD type: unspecified COPD Pleural effusion, left J90 Acute dehydration E86.0 Atrial flutter with rapid ventricular response I48.92 Time Spent (min) 30
--- NOTE | 2019-08-01 12:33 | Electrocardiogram Report ---
Test Reason : Blood Pressure : / mmHG Vent. Rate : 103 BPM Atrial Rate : 000 BPM P-R Int : 000 ms QRS Dur : 120 ms QT Int : 300 ms P-R-T Axes : 000 029 -06 degrees QTc Int : 393 ms Atrial flutter with variable A-V block Low voltage QRS Right bundle branch block Abnormal ECG When compared with ECG of 26-JUL-2019 23:58, T wave inversion less evident in Anterior leads QT has shortened Confirmed by Jamal Elizabeth ([id number]) on 08/01/2019 12:32:49 PM Referred By: REFERRED SELF Confirmed By:Jamal Elizabeth
[2019-08-01] MEDS: DIGOXIN 0.125 MG TAB PO SCH (16:25)
[2019-08-01] MEDS: MoRPHine SULFATE 5 MG/0.25 ML UDP PO PRN ×2 (19:59→23:42)
[2019-08-02] MEDS: MoRPHine SULFATE 5 MG/0.25 ML UDP PO PRN (06:12)
[2019-08-02] MEDS: LORazepam 0.5 MG TAB PO PRN ×2 (07:06→18:12)
[2019-08-02] MEDS: METOPROLOL TARTRATE 25 MG TAB PO SCH ×2 (07:09→21:13)
[2019-08-02] MEDS: MENTHOL-ZINC OXIDE 360 APPLN/120 GM TUBE EXT SCH ×2 (08:03→21:08)
--- NOTE | 2019-08-02 10:20 | Consultation Report ---
DATE OF CONSULTATION: 08/02/2019 REASON FOR CONSULTATION: Newly diagnosed nonsmall cell lung cancer. HISTORY OF PRESENT ILLNESS: Mr. Castillo is a 78-year-old elderly gentleman who was admitted to [facility] on 07/26/2019 with new onset atrial flutter, shortness of breath and a lung mass. During my encounter with Mr. Castillo communication was garbled, difficult to extract precise information and therefore relying heavily on clinical notes moving forward. 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 He had never been evaluated by medical oncology, but he believes he has had some radiographic workup in the past. On the morning of admission, he became more short of breath and difficulty arising from sleep. He felt that he was experiencing near syncopal episodes. Thus, he was brought to [facility]'s Emergency Room and found to be in atrial fibrillation/atrial flutter with rapid ventricular response. They obtained a chest x-ray, which revealed a pleural based malignancy at the lateral aspect of the hemithorax, which increased in size from 6.3 cm to 7.7 since early in June. The patient was started on anticoagulation and Cardizem drip with fluid bolus and subsequently transferred to [facility] for further evaluation. Thus prior to his admission, specifically on 07/05/2019, he was hospitalized at [facility] in [place] where he actually underwent an official biopsy of the left upper anterior chest wall mass. Pathology is consistent with poorly differentiated nonsmall cell lung cancer was squamoid differentiation. During hospitalization, palliative team was consulted and based on their documentation, conversations with the patient's whom Mr. Castillo has been for many years, discussed the goals of care moving forward. It would appear that Mr. Castillo is interested in pursuing further treatment when his performance status improves and/or comorbid issues are stabilized. I would assume he has established care with oncology in the [place] area and thus when he is discharged, could continue care locally. Somewhat unclear the purpose of consult for local oncology, but would be happy to engage with the patient's family if so desired. PAST MEDICAL HISTORY: Significant for left-sided pleural effusion, atrial fibrillation/flutter, mass in the left chest valve. MEDICATIONS: Prior to admission include prednisone 2.5 mg p.o. daily, pravastatin 20 mg p.o. daily, Aleve 440 mg p.o. b.i.d. p.r.n., metoprolol 25 mg p.o. t.i.d., losartan 50 mg p.o. daily, hydrocodone 1 tablet p.o. daily p.r.n., glimepiride 2 mg p.o. daily, Ezetimibe 10 mg p.o. daily, amlodipine 5 mg p.o. daily, albuterol 2 puffs inhaled as directed p.r.n., Anoro Ellipta 1 inhalation as directed. ALLERGIES: No known drug allergies. SOCIAL HISTORY: The patient is from his . He is a reformed smoker. Negative for alcohol or substance abuse. FAMILY HISTORY: Unobtainable. REVIEW OF SYSTEMS: Unobtainable because of the patient's mental status. PHYSICAL EXAMINATION: GENERAL: Disheveled 78-year-old gentleman, awake and alert, does answer a few simple questions, in no acute distress. VITAL SIGNS: Temperature 36.4, pulse 152, respiratory rate 20, blood pressure 106/72. SKIN: No overt rashes. He has got a few scattered senile purpura on the dorsum of his arms. HEENT: Atraumatic, normocephalic. Eyes: PERRLA, EOMI. Nares are patent without rhinorrhea or discharge. Throat is clear. Tongue is midline. No buccal lesions or ulcerations. NECK: Supple. HEART: Tachycardic, irregularly irregular. LUNGS: Clear to auscultation. ABDOMEN: Soft, nontender, nondistended. EXTREMITIES: No clubbing, cyanosis or edema. MUSCULOSKELETAL: Strength testing not performed. NEUROLOGIC: Grossly intact. RADIOGRAPHIC DATA: MRI of the brain performed on 07/31/2019, question two punctate foci by restricted diffusion versus artifact in the left posterior parietal white matter. No evidence of metastatic disease. Chest x-ray of the left pulmonary mass lesion similar to previous are noted small left pleural effusion with left basilar consolidation similar to film performed on 07/28/2019. LABORATORY DATA: From 08/01/2019: WBC count 27,320, hemoglobin 9.7, platelet count 190,000. Absolute neutrophil count 24,130. Sodium 144, potassium 5.7, chloride 119, carbon dioxide 18, creatinine 1.80, BUN 56, calcium 10.9. ASSESSMENT: 1. Nonsmall cell lung cancer, stage indeterminate. 2. Fever/leukocytosis. 3. Atrial flutter with rapid ventricular rate. 4. Hypercalcemia of malignancy. 5. Altered mental status. 6. Chronic obstructive pulmonary disease. 7. Diabetes mellitus type 2. PLAN: It would appear this gentleman was initially worked up at [facility] in [place] and oncology services are available locally. In my estimation, he has got many comorbid issues and would not be enthusiastic to begin any sort of treatment on him, several questions need to be answered. Perhaps a PET scan should be done to determine if he has got a distant disease. MRI of the brain was done here, negative for intracerebral metastatic disease. Mr. Castillo certainly not well enough to receive any sort of treatment while inhouse. Optimal performance status is necessary to offer any form of treatment depending on stage. Thus, if the family desires to continue consultation locally, I would be happy to see Mr. Castillo if he recovers and his medical problems are stable. I have nothing further to add. If you have any specific questions, feel free to contact me by phone. I will be spoon maker throughout the weekend. Lastly would check albumin level and calculate adjusted calcium which I suspect is higher than serum Ca. MTDD
--- NOTE | 2019-08-02 11:21 | Hospitalist Progress Note ---
Date of Service August 02, 2019 Assessment & Plan (1) Carcinoma: 78 yo M PMHx recently diagnosed L lung mass, DM2, HTN, Anxiety/Depression, Bullous Pemphigoid, CKD with baseline ~1.8, COPD admitted for Aflutter with RVR, MEGHNA, and uncontrolled pain 2/2 lung mass Goals of care secondary to lung mass and continued deterioration Since admission patient has continued to worsen clinically, worsening mental status, refusing medicaitons and refusing food and drink - Had discussions with patient's medical decision maker and patient during his more lucid moments who both agree he'd prefer to just remain comfortable - Continuing metoprolol and digoxin for rate control all other non comfort meds d/c'd - No lines or johns's traumatically removed own catheter yesterday - Morphine for pain, ativan for anxiety - Appears comfortable at present - WIll continue to monitor. Dispo: Comfort care, may be candidate for SNF with hospice (2) Goals of care, counseling/discussion: (3) Pleural effusion, left: (4) Mass of lower lobe of left lung: (5) Metabolic acidosis: (6) On continuous oral anticoagulation: (7) Mass of left chest wall: (8) Bullous pemphigoid: (9) DM2 (diabetes mellitus, type 2): (10) HTN (hypertension): Admission and Anticipated Discharge Date Admission Date: July 26, 2019 Supervising Physician Co-Signing Physician Notes Resident Physician Supervision Note: I independently interviewed and examined the patient and verified the griggs history and physical, reviewed labs and image studies, discussed the case with the resident Dr. Schmid and agree with the findings and care plan. Subjective Patient evaluated this morning and he was conversive but repeated his words and didn't answer questions appropriately. Re assessed later and his mental status had deteriorated much further barely rousable, large piece of food in his mouth while he slept tried to wake up to swallow or spit out. He only barely rouses at present. Review of Systems Review of Systems: Unobtainable due to cognitive status Physical Exam Physical Exam: General: A&Ox1. mild distress when awoken, but sleeping mostly HEENT: Atraumatic, normocephalic. Visual acuity decreased bilaterally. Pupils equal and reactive to light and accommodation. Mucous membranes dry, food present in oropharynx while he sleeps Pulm: Increased work of breathing, rapid breathing pattern, breaths shallow occasionally moans Cardiac: Tachycardic, irregularly irregular, Abdominal: Distended, mild epigastric tenderness without rebound tenderness or rigidity. Bowel sounds diminished. Extremities:BIlateral pitting edema Results & Data Results & Data ([facility]) Vital Signs (Past 12 Hours) Vital Signs Temp Pulse Resp BP Pulse Ox 08/02/19 06:58 36.4 C L 152 H 20 106/72 97
--- NOTE | 2019-08-02 15:21 | Palliative Care Progress Note ---
Date of Service August 02, 2019 Assessment & Plan (1) Goals of care, counseling/discussion: -78 year old male patient with PMH left lung mass, DM2, HTN, Anxiety/Depression, Bullous Pemphigoid, CKD, and COPD, and others, presented as a transfer from [facility] ED six days ago for new onset A Flutter, SOB, and lung mass. Patient was given IV Cardizem for aflutter, on heparin gtt which was started at [facility]. Cardiology consulted. Per report from [facility], patient has left pleural-based malignancy had increased in size from approximately 6.3cm to 7.7cm since 07/03/2019. CXR here revealed a large destructive mass involving the left axilla and left upper chest and several ribs. CT Head, Chest, Abdomen/Pelvis w/o contrast obtained due to MEGHNA-- creatinine ~1.8 at baseline and was 2.8 on admission. CTAP without signs of metastasis. CT chest shows lung mass of about 8cm in size at largest diameter with extension into the axilla, as well as lymphadenopathy to 4.5 cm. Patient and report patient having had a lung biopsy several weeks ago at [facility]-- those records have been requested. Pulmonology consulted here at [facility]-- deferring any biopsy or thoracentesis until records have been received from [place] and we are able to contact family for decision making as patient is somewhat confused and doesn't always answer appropriately. Patient is being treated with abx for pneumonia. 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 Pulm notes that patient's disease is already advanced, and need to discuss code status and goals of care. Palliative care is consulted. -Patient to be seen by palliative MD this afternoon. According to attending physician who I spoke with, as well as nursing, patient remains delirious and confused. He is refusing medications. His heart rate continues to be abnormal and tachycardic. -Spoke with patients at length. Elda has known patient for a long time, they have been for many years, but have been living separately for the past 20 years. However, they have remained close. Elda is in charge of patient's finances and paying bills. She states that it was easier for her to continue these things as patient "wasn't able to get out and do these things." -We discussed patient's pathology results. She is aware that patient has malignancy. I discussed that patient's disease is already advanced. He remains confused and delirious, he is having issues with his heart rate, and he has been refusing medications. She was surprised to hear this and said that patient's confusion has only started since he has been feeling ill. Prior to this, he had no issues with cognition per the . -Elda stated that while they did not specifically discuss goals of care, patient had indicated that he wanted to be aggressive with his possible diagnosis. She states he was planning to meet with a radiation oncologist at some point. She wants to continue for medical treatment at this time, and I explained that he is ill enough at this point that treatments for the cancer such as radiation and chemo therapy may be difficult. -We discussed code status. After talking about this in detail, she states that patient would not want to have CPR or intubation. She is comfortable making patient a DNR/DNI at this point. -Patient has no children. states he has no siblings or other family members. She is the only person to make decisions for patient. I asked if she was able to make a bedside visit to see patient and discuss goals of care. However, she states she is in a wheelchair and not in great health herself. She also has no way of getting to the hospital. She is going to call in to the nurses' station and attempt to speak with patient on phone. -Elda is aware patient will need placement after hospitalization. she is in agreement with this. -Attending physician updated and will call Elda for further discussion as well -We will continue to follow. (2) Atrial flutter with rapid ventricular response: (3) Mass of lower lobe of left lung: (4) Pleural effusion, left: Subjective Patient seen and examined this afternoon-speech mumbled, no understandable words. Patient unable to nod yes or no to simple questions, did not follow simple commands. Patient did require 3 PRN Roxanol in the past 18 hours and 1 PRN Ativan. Patient currently on comfort measures only. Review of Systems Review of Systems: Unobtainable due to cognitive status Physical Exam Physical Exam: PE: Patient arousable, appears comfortable at rest HEENT: EOMI, hearing appears to be within normal limits Respirations: Unlabored CV: Tachycardic, no edema Abdomen: Soft Neuro: Confused, unable to follow simple commands, mumbled speech. Results & Data Vital Signs (Past 12 Hours) Vital Signs Temp Pulse Resp BP Pulse Ox 08/02/19 06:58 97.5 F L 152 H 20 106/72 97 PG Care Time/CCT Total # of Minutes Spent Total Time Spent with Patient: Total time spent 25 minutes with greater than 50% of the time at bedside assessing patient's current level of comfort. Coding Level of Care Code 17817 Subseq Hosp Care Lvl 2 Diagnoses Goals of care, counseling/discussion Z71.89 Atrial flutter with rapid ventricular response I48.92 Mass of lower lobe of left lung R91.8 Pleural effusion, left J90 Time Spent (min) 25
[2019-08-02] MEDS: DIGOXIN 0.125 MG TAB PO SCH (16:25)
[2019-08-03] MEDS: METOPROLOL TARTRATE 25 MG TAB PO SCH ×3 (07:40→20:26)
[2019-08-03] MEDS: MENTHOL-ZINC OXIDE 360 APPLN/120 GM TUBE EXT SCH ×2 (07:41→20:20)
[2019-08-03] MEDS: MoRPHine SULFATE 5 MG/0.25 ML UDP PO PRN ×3 (07:44→19:48)
[2019-08-03] MEDS: LORazepam 0.5 MG TAB PO PRN ×2 (08:51→18:51)
--- NOTE | 2019-08-03 11:47 | Hospitalist Progress Note ---
Date of Service August 03, 2019 Assessment & Plan (1) Carcinoma: Spencer Castillo is a 78y/o M with PMH significant for recently diagnosed L lung mass, DM2, HTN, Anxiety/Depression, Bullous Pemphigoid, CKD with baseline ~1.8, COPD admitted for Aflutter with RVR, MEGHNA, and uncontrolled pain 2/2 lung mass Lung mass - likely Carcinoma: - Since admission patient has continued to worsen clinically, with worsening mental status; refusal of medication, food, and drink - Palliative had extensive discussions with patient's medical decision maker and patient during his more lucid moments who both agree he'd prefer to just remain comfortable - Continuing metoprolol and digoxin for rate control all other non comfort meds d/c'd - will continue to periodically check HR with aim to keep patient comfortable given potential for increased discomfort with tachycardia - No lines or johns's; patient traumatically removed catheter yesterday - Morphine for pain, ativan for anxiety - Appears comfortable at present - continue to monitor. Dispo: Comfort care, may be candidate for SNF with hospice (2) Goals of care, counseling/discussion: (3) Pleural effusion, left: (4) Mass of lower lobe of left lung: (5) Metabolic acidosis: (6) On continuous oral anticoagulation: (7) Mass of left chest wall: (8) Bullous pemphigoid: (9) DM2 (diabetes mellitus, type 2): (10) HTN (hypertension): Admission and Anticipated Discharge Date Admission Date: July 26, 2019 Supervising Physician Co-Signing Physician Notes Resident Physician Supervision Note: I independently interviewed and examined the patient and verified the griggs history and physical, reviewed labs and image studies, discussed the case with the resident Dr. Ridley and agree with the findings and care plan. Subjective Patient moaning continuously this AM, but unable to voice that he is currently in pain or feeling discomfort. In efforts to minimize his discomfort his lines and monitors have been discontinued in accordance with his family's expressed wishes. Review of Systems Review of Systems: Unobtainable due to reduced consciousness Physical Exam Constitutional: + ill appearing, + altered mental status and + physical limitations Eyes: + anicteric sclerae and PERRL; no conjunctival abnormality ENMT: Mouth: + dry oral mucous membranes Respiratory: normal respiratory effort; no respiratory distress, no labored breathing and no cough Auscultation: no crackles, no rales and no wheezes Cardiovascular: Rate/Rhythm: + tachycardic and + irregularly irregular Gastrointestinal (Abdomen): normal bowel sounds, soft, nontender, no hepatosplenomegaly Skin: no rashes, warm and dry Psychiatric: Orientation: alert; + not oriented x 3 Eye Contact: + fair eye contact Motor Behavior: n tremor Resident Activity Tracking Resident Involvement: Resident Care Provided Care Provided: Adult Hospital Medicine
[2019-08-03] MEDS: DIGOXIN 0.125 MG TAB PO SCH (16:09)
[2019-08-04] MEDS: MoRPHine SULFATE 5 MG/0.25 ML UDP PO PRN ×5 (02:25→21:15)
[2019-08-04] MEDS: LORazepam 0.5 MG TAB PO PRN (04:12)
[2019-08-04] MEDS: MENTHOL-ZINC OXIDE 360 APPLN/120 GM TUBE EXT SCH ×2 (08:20→20:06)
[2019-08-04] MEDS: METOPROLOL TARTRATE 25 MG TAB PO SCH ×2 (08:21→20:11)
--- NOTE | 2019-08-04 09:28 | Hospitalist Progress Note ---
Date of Service August 04, 2019 Assessment & Plan (1) Carcinoma: Spencer Castillo is a 78y/o M with PMH significant for recently diagnosed L lung mass, DM2, HTN, Anxiety/Depression, Bullous Pemphigoid, CKD with baseline ~1.8, COPD admitted for Aflutter with RVR, MEGHNA, and uncontrolled pain 2/2 lung mass Lung mass Carcinoma: - Since admission patient has continued to worsen clinically, with worsening mental status; refusal of medication, food, and drink - Palliative had extensive discussions with patient's medical decision maker and patient during his more lucid moments who both agree he'd prefer to just remain comfortable - Continuing metoprolol and digoxin for rate control all other non comfort meds d/c'd - with his history of A. fib will continue to periodically check HR with aim to keep patient comfortable given potential for increased discomfort with tachyca rdia; consider increase in Metoprolol if concern for discomfort with persistent tachycardia - No lines or johns's; patient traumatically removed catheter previously - Morphine for pain, ativan for anxiety - Appears comfortable at present - continue to monitor Dispo: Comfort care, may be candidate for SNF with hospice (2) Goals of care, counseling/discussion: (3) Pleural effusion, left: (4) Mass of lower lobe of left lung: (5) Metabolic acidosis: (6) On continuous oral anticoagulation: (7) Mass of left chest wall: (8) Bullous pemphigoid: (9) DM2 (diabetes mellitus, type 2): (10) HTN (hypertension): Admission and Anticipated Discharge Date Admission Date: July 26, 2019 Supervising Physician Co-Signing Physician Notes Resident Physician Supervision Note: I independently interviewed and examined the patient and verified the griggs histo ry and physical, reviewed labs and image studies, discussed the case with the resident Dr. Ridley and agree with the findings and care plan. Subjective Patient moaning continuously this AM, but unable to voice that he is currently in pain or feeling discomfort. Will continue to periodically monitor HR in order to maintain continued comfort of patient. But in order to minimize discomfort, his lines and monitors will remain discontinued in accordance with his family's expressed wishes. Review of Systems Review of Systems: Unobtainable due to cognitive status Physical Exam Constitutional: + ill appearing, + altered mental status and + physical limitations Eyes: + anicteric sclerae and PERRL; no conjunctival abnormality ENMT: Mouth: + dry oral mucous membranes Respiratory: normal respiratory effort; no respiratory distress, no labored breathing and no cough Auscultation: no crackles, no rales and no wheezes Cardiovascular: Rate/Rhythm: + tachycardic and + irregularly irregular Gastrointestinal (Abdomen): normal bowel sounds, soft, nontender, no hepatosplenomegaly Skin: no rashes, warm and dry Psychiatric: Orientation: alert; + not oriented x 3 Eye Contact: + fair eye contact Motor Behavior: n tremor Results & Data Results & Data ([facility]) Vital Signs (Past 12 Hours) Vital Signs Pulse Pulse Ox 08/04/19 08:00 152 H 94 Resident Activity Tracking Resident Involvement: Resident Care Provided Care Provided: Adult Hospital Medicine
[2019-08-04] MEDS: DIGOXIN 0.125 MG TAB PO SCH (16:22)
[2019-08-05] MEDS: MoRPHine SULFATE 5 MG/0.25 ML UDP PO PRN (00:18)
[2019-08-05] MEDS: METOPROLOL TARTRATE 25 MG TAB PO SCH (10:10)
[2019-08-05] MEDS: MENTHOL-ZINC OXIDE 360 APPLN/120 GM TUBE EXT SCH (10:21)
[2019-08-05] MEDS ORDERED: MoRPHine SULFATE 5 MG/0.25 ML UDP PO STA (10:46)
--- NOTE | 2019-08-05 12:31 | Death Pronouncement Note ---
Date of Service August 05, 2019 I was called to the room by the nurse to evaluate Mr. Castillo. Upon entering the room the patient was not visibly breathing and I placed my stethoscope on his chest and listened. He did not have breath sounds, I felt for a pulse and there was no palpable pulse present. He did not arouse to sternal rub. His pupils were fixed and dilated. He did not respond with corneal reflex. He was pronounced at 11:18 AM. Pronouncement Note Admission Date Admission Date: July 26, 2019 Contributing Factors (1) Carcinoma: (2) Goals of care, counseling/discussion: (3) Pleural effusion, left: (4) Mass of lower lobe of left lung: (5) Metabolic acidosis: (6) On continuous oral anticoagulation: (7) Mass of left chest wall: (8) Bullous pemphigoid: (9) DM2 (diabetes mellitus, type 2): (10) HTN (hypertension): Additional Data Attending physician: Gokul Mcgrath DO Resident Activity Tracking Resident Involvement: Resident Care Provided Care Provided: Adult Hospital Medicine
--- NOTE | 2019-08-05 12:44 | Discharge Summary ---
Date of Service August 05, 2019 Admission HPI Per Admitting Provider Patient is a 78 year old male with PMHx L lung mass, DM2, HTN, Anxiety/Depression, Bullous Pemphigoid, CKD, and COPD who presents as a transfer from [facility] for new onset A Flutter, SOB, and lung mass. Patient states that he was first diagnosed with a "bone cancer" 3-4 months ago by his PCP Dr. Killian. He notes that since that time, he has yet to see an Oncologist, but does state he has had "some scans" in the past. Patient denies knowing what scans he has had and is unclear if he had the work up completed at [facility] or [place]. He also notes that this morning his symptoms began as worsening shortness of b reath upon awakening. He noted that he was also having "difficulty waking up" and states that while he did not pass out, he felt as though he were about to several times. His home nurse came for the day and encouraged the patient to go to the ED for evaluation due to her concerns for his worsening SOB. While at [facility] ED he was found to be in Afib/Aflutter with RVR and had an MEGHNA on top of his CKD. They also made note on CXR of a pleural-based malignancy at the lateral aspect of the hemithorax which had increased from 6.3cm to 7.7cm since 07/03/2019. Patient was given Cardizem, a fluid bolus, and put on a heparin drip. He was also given morphine for his L shoulder/chest wall pain. He was transferred to [facility] for further treatment and evaluation. Patient currently states that he does not feel SOB (while on 4L NC). He states he cannot feel his heart racing nor does he have any chest pain or dizziness. He does note dyspnea on exertion, nausea, abdominal pain primarily in the LLQ, and L shoulder pain 5/10 intensity. Admission Exam (Per Admitting) Constitutional Constitutional: + body aches and + weakness; no fever and no chills Eyes: + worsening vision Ear, Nose, Mouth, Throat: + dry mouth Respiratory: + dyspnea and + dyspnea on exertion; no cough and no hemoptysis Cardiovascular: + dyspnea, + dyspnea at rest and + dyspnea on exertion; no chest pain, no palpitations, no edema and no calf pain Gastrointestinal: + abdominal pain, + bloating and + nausea; no vomiting, no constipation and no diarrhea/loose stools Genitourinary: no dysuria Musculoskeletal: shoulder pain Neurologic: no falls pre-syncope Discharge Data Consultations 07/26/19 23:20 ED Decision to Admit Stat 07/27/19 01:18 Consult Cardiology Routine Consult Case Management - Discharge Planning Routine Consult Pulmonology Routine 08/01/19 08:12 Consult Palliative Care Routine 08/01/19 09:01 Consult Oncology Routine 08/01/19 10:46 Consult Case Management - Discharge Planning Routine Consult Palliative Care Routine Hospital Course (1) Carcinoma: Spencer Castillo is a 78y/o M with PMH significant for recently diagnosed L mita ng mass, DM2, HTN, Anxiety/Depression, Bullous Pemphigoid, CKD with baseline ~1.8, COPD admitted for Aflutter with RVR, MEGHNA, and uncontrolled pain 2/2 lung mass. Patient deteriorated clinically deteriorated and passed at 11:18 AM. Carcinoma: - Since admission patient has continued to worsen clinically, deteriorating overnight, unable to interact and having rapid shallow breathing early this morning. - Palliative had extensive discussions with patient's medical decision maker and patient during his more lucid moments who both agree he'd prefer to just remain comfortable, note below. - No lines or johns's in place prior to passing. - called patient's medical decision maker and discussed with her Mr. Castillo's passing, she had no questions for me. Atrial fibrillation - was on Metoprolol and Digoxin for rate control - rate was up to 150's overnight Tachycardia - possibly due to atrial fibrillation vs. pain from lung mass - PRN morphine was available Palliative care note - "78 year old male patient with PMH left lung mass, DM2, HTN, Anxiety/Depression, Bullous Pemphigoid, CKD, and COPD, and others, prese nted as a transfer from [facility] ED six days ago for new onset A Flutter, SOB, and lung mass. Patient was given IV Cardizem for aflutter, on heparin gtt which was started at [facility]. Cardiology consulted. Per report from [facility], patient has left pleural-based malignancy had increased in size from approximately 6.3cm to 7.7cm since 07/03/2019. CXR here revealed a large destructive mass involving the left axilla and left upper chest and several ribs. CT Head, Chest, Abdomen/Pelvis w/o contrast obtained due to MEGHNA-- creatinine ~1.8 at baseline and was 2.8 on admission. CTAP without signs of metastasis. CT chest shows lung mass of about 8cm in size at largest diameter with extension into the axilla, as well as lymphadenopathy to 4.5 cm. Patient and report patient having had a lung biopsy several weeks [facility]-- those records have been requested. Pulmonology consulted here at [facility]-- deferring any biopsy or thoracentesis until records have been received from [place] and we are able to contact family for decision making as patient is somewhat confused and doesn't always answer appropriately. Patient is being treated with abx for pneumonia. 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 Pulm notes that patient's disease is already advanced, and need to discuss code status and goals of care. Palliative care is consulted. -Patient to be seen by palliative MD this afternoon. According to attending physician who I spoke with, as well as nursing, patient remains delirious and confused. He is refusing medications. His heart rate continues to be abnormal and tachycardic. -Spoke with patients at length. Elda has known patient for a long time, they have been for many years, but have been living separately for the past 20 years. However, they have remained close. Elda is in charge of patient's finances and paying bills. She states that it was easier for her to continue these things as patient "wasn't able to get out and do these things." -We discussed patient's pathology results. She is aware that patient has malignancy. I discussed that patient's disease is already advanced. He remains confused and delirious, he is having issues with his heart rate, and he has been refusing medications. She was surprised to hear this and said that patient's confusion has only started since he has been feeling ill. Prior to this, he had no issues with cognition per the . -Elda stated that while they did not specifically discuss goals of care, patient had indicated that he wanted to be aggressive with his possible diagnosis. She states he was planning to meet with a radiation oncologist at some point. She wants to continue for medical treatment at this time, and I explained that he is ill enough at this point that treatments for the cancer such as radiation and chemo therapy may be difficult. -We discussed code status. After talking about this in detail, she states that patient would not want to have CPR or intubation. She is comfortable making patient a DNR/DNI at this point. -Patient has no children. states he has no siblings or other family members. She is the only person to make decisions for patient. I asked if she was able to make a bedside visit to see patient and discuss goals of care. However, she states she is in a wheelchair and not in great health herself. She also has no way of getting to the hospital. She is going to call in to the nurses' station and attempt to speak with patient on phone. -Elda is aware patient will need placement after hospitalization. she is in agreement with this." (2) Goals of care, counseling/discussion: (3) Pleural effusion, left: (4) Mass of lower lobe of left lung: (5) Metabolic acidosis: (6) On continuous oral anticoagulation: (7) Mass of left chest wall: (8) Bullous pemphigoid: (9) DM2 (diabetes mellitus, type 2): (10) HTN (hypertension): Supervising Physician Co-Signing Physician Notes chart reviewed and case d/w dr mac. pt was comfort care with significant cancer burden - was actually just completed in discussing his case and discussing means for pain control when dr mac was called that he passed. see his notes. Resident Activity Tracking Resident Involvement: Resident Care Provided Care Provided: Adult [facility]
== END 2019-08-05 12:50 | disposition expired | DRG 180 ==
LOC: ED 18:53 → 2S 23:05 → SUATTDRO 23:05 → 2S 07-27 00:07 → 3N 08-01 14:31